=== PATIENT | female | born 1940 | race Caucasian/White ===

== ENCOUNTER → 2017-08-21 12:00 | Outpatient (CLI) | payer MEDICARE, OTHER, SELFPAY ==
[2017-08-21 15:34] LABS: Absolute Lymphocyte Count 1.64 X10^3/ul (0.83-4.51); Absolute Neutrophil Count 4.7 X10^3/uL (2.0-7.7); Basophil# 0.04 X10^3/uL; Basophil% 0.5 % (0-1); Eosinophil# 0.21 X10^3/uL; Eosinophils% 2.9 % (0-5); Hematocrit 43.3 % (37-47); Hemoglobin 14.3 g/dl (12.0-15.0); Lymphocyte # 1.64 X10^3/ul (4.0); Lymphocyte % 22.4 % (19-41); Mean Corpuscular Hgb 31.3 pg (27.0-32.0); Mean Corpuscular Volume 94.7 fL (81-99); Mean Platelet Vol. 11.6 fl (6.2-12.0); Monocyte# 0.69 X10^3/uL; Monocyte% 9.4 % (0-10); Neutrophil # 4.74 X10^3/uL (2.7-7.7); Neutrophil % 64.7 % (47-70); Platelet Count 227 K/mm3 (150-450); RBC Distribution Width CV 14.6 % (11.6-14.6); RBC Distribution Width SD 49.1 fl (35.1-43.9); Red Blood Count 4.57 M/mm3 (4.2-5.4); White Blood Count 7.3 K/mm3 (4.4-11.0)
[2017-08-21 15:37] LABS: POSITIVE COUNT NO; POSITIVE DIFFERENTIAL NO; POSITIVE MORPHOLOGY NO
[2017-08-21 15:55] LABS: Vitamin D,25 Hydroxy 64.6 ng/mL (29.95-100.01)
[2017-08-21 15:56] LABS: Hemoglobin A1c 6.2 % (4.2-6.3)
[2017-08-21 16:02] LABS: ALB/GLOB Ratio 0.8 RATIO (0.9-2.4); AST(SGOT) 20 U/L (15-37); Alanine Aminotransfer ALT/SGPT 24 U/L (13-56); Albumin, Serum 3.5 g/dL (3.2-5.0); Alkaline Phosphatase 63 U/L (45-117); Anion Gap 8 (5-15); BUN 30 mg/dL (7-18); BUN/Creat Ratio 21.6 RATIO (10-20); Calcium,Total 8.9 mg/dL (8.5-10.1); Chloride 104 mmol/L (98-107); Creatinine, Serum 1.39 mg/dL (0.55-1.02); EST Glomerular Filtration Rate 39 mL/min (>60); Est Glom Filt Rate - Afr Amer 47 mL/min (>60); Globulin 4.6 g/dL (2.2-4.2); Glucose 97 mg/dL (74-106); Potassium 3.8 mmol/L (3.5-5.1); Protein, Total 8.1 g/dL (6.4-8.2); Sodium Level 141 mmol/L (136-145)
== END ==
PROVIDERS: Family Provider Family Medicine; PCP Family Medicine; Visit Provider Family Medicine
DX: E11.9 Type 2 diabetes mellitus without complications (principal); I10 Essential (primary) hypertension; R53.83 Other fatigue
CPT/HCPCS: 36415; 80053; 82306; 83036; 85025

== ENCOUNTER → 2018-02-20 11:51 | Outpatient (CLI) | payer MEDICARE, OTHER, SELFPAY ==
[2018-02-20 13:34] LABS: Absolute Lymphocyte Count 1.71 X10^3/ul (0.83-4.51); Absolute Neutrophil Count 4.4 X10^3/uL (2.0-7.7); Basophil# 0.03 X10^3/uL; Basophil% 0.4 % (0-1); Eosinophil# 0.19 X10^3/uL; Eosinophils% 2.6 % (0-5); Hemoglobin 13.4 g/dl (12.0-15.0); Lymphocyte # 1.71 X10^3/ul (4.0); Lymphocyte % 23.7 % (19-41); Mean Corp Hgb Conc 32.7 g/gl (32-36); Mean Corpuscular Volume 94.9 fL (81-99); Mean Platelet Vol. 11.7 fl (6.2-12.0); Monocyte# 0.86 X10^3/uL; Monocyte% 11.9 % (0-10); Neutrophil # 4.41 X10^3/uL (2.7-7.7); Neutrophil % 61.3 % (47-70); Platelet Count 198 K/mm3 (150-450); RBC Distribution Width CV 13.5 % (11.6-14.6); RBC Distribution Width SD 45.7 fl (35.1-43.9); Red Blood Count 4.32 M/mm3 (4.2-5.4); White Blood Count 7.2 K/mm3 (4.4-11.0)
[2018-02-20 13:39] LABS: POSITIVE COUNT NO; POSITIVE DIFFERENTIAL NO; POSITIVE MORPHOLOGY NO
[2018-02-20 13:49] LABS: ALB/GLOB Ratio 0.7 RATIO (0.9-2.4); AST(SGOT) 17 U/L (15-37); Alanine Aminotransfer ALT/SGPT 19 U/L (13-56); Albumin, Serum 3.2 g/dL (3.2-5.0); Alkaline Phosphatase 61 U/L (45-117); Anion Gap 9 (5-15); BUN 23 mg/dL (7-18); BUN/Creat Ratio 18.5 RATIO (10-20); Calcium,Total 8.6 mg/dL (8.5-10.1); Chloride 105 mmol/L (98-107); Cholesterol 155 mg/dL (200); Creatinine, Serum 1.24 mg/dL (0.55-1.02); EST Glomerular Filtration Rate 45 mL/min (>60); Est Glom Filt Rate - Afr Amer 54 mL/min (>60); Globulin 4.5 g/dL (2.2-4.2); Glucose 88 mg/dL (74-106); High Density Lipoprotein 39 mg/dL; Potassium 3.5 mmol/L (3.5-5.1); Protein, Total 7.7 g/dL (6.4-8.2); Sodium Level 143 mmol/L (136-145); Triglycerides 128 mg/dL; Very Low Density Lipoprotein 26 mg/dL (5-40)
== END ==
PROVIDERS: Family Provider Family Medicine; PCP Family Medicine; Visit Provider Family Medicine
DX: E11.9 Type 2 diabetes mellitus without complications (principal); I10 Essential (primary) hypertension; R53.83 Other fatigue
CPT/HCPCS: 36415; 80053; 80061; 85025

== ENCOUNTER 2018-07-13 20:44 | Emergency (ER) | payer MEDICARE, OTHER, SELFPAY ==
[2018-07-13 20:44] VITALS: BP 115/61; PULSE 98; RESP 18; TEMP 36.6; O2SAT 96; BMI 42.0
[2018-07-13] MEDS: Albuterol 2.5 MG/3 ML VIAL.NEB. INHALATION (21:15)
[2018-07-13] MEDS: 0.9% Normal Saline 1,000 ML 1000 ML IV (21:25)
[2018-07-13 21:40] LABS: Absolute Lymphocyte Count 1.14 X10^3/ul (0.83-4.51); Absolute Neutrophil Count 2.8 X10^3/uL (2.0-7.7); Basophil# 0.03 X10^3/uL; Basophil% 0.6 % (0-1); Eosinophil# 0.04 X10^3/uL; Eosinophils% 0.9 % (0-5); Hematocrit 44.6 % (37-47); Hemoglobin 14.8 g/dl (12.0-15.0); Lymphocyte # 1.14 X10^3/ul (4.0); Lymphocyte % 24.5 % (19-41); Mean Corp Hgb Conc 33.2 g/gl (32-36); Mean Corpuscular Volume 93.3 fL (81-99); Mean Platelet Vol. 11.4 fl (6.2-12.0); Monocyte# 0.67 X10^3/uL; Monocyte% 14.4 % (0-10); Neutrophil # 2.77 X10^3/uL (2.7-7.7); Neutrophil % 59.6 % (47-70); POSITIVE COUNT NO; POSITIVE DIFFERENTIAL NO; POSITIVE MORPHOLOGY NO; Platelet Count 144 K/mm3 (150-450); RBC Distribution Width SD 46.1 fl (35.1-43.9); Red Blood Count 4.78 M/mm3 (4.2-5.4); White Blood Count 4.7 K/mm3 (4.4-11.0)
[2018-07-13 21:52] LABS: Anion Gap 8 (5-15); BUN 29 mg/dL (7-18); BUN/Creat Ratio 20.7 RATIO (10-20); Calcium,Total 8.7 mg/dL (8.5-10.1); Chloride 105 mmol/L (98-107); EST Glomerular Filtration Rate 39 mL/min (>60); Est Glom Filt Rate - Afr Amer 47 mL/min (>60); Estimated Creatinine Clearance 24.17 ml/min; Glucose 103 mg/dL (74-106); Potassium 3.3 mmol/L (3.5-5.1); Sodium Level 139 mmol/L (136-145)
--- NOTE | 2018-07-13 21:55 | RAD_ITS ---
STUDY: X-RAY CHEST REASON FOR EXAM: Female, 77 years old. Cough TECHNIQUE: Frontal and lateral views COMPARISON: May 15, 2017 FINDINGS: The lungs are clear and expanded. There is no demonstrated pleural abnormality. Normal size heart. Normal mediastinum and colton. Normal visualized pulmonary arteries. Calcified aortic arch and descending thoracic aorta. Degenerative changes of the thoracic spine. Normal visualized ribs, clavicles, and shoulders. Follow-up large hiatal hernia. RAD/Chest PA and Lateral IMPRESSION: Large hiatal hernia. Electronically Signed: Arslan Rivera DO at 23:05 EST Tel [phone], Service support ,
--- NOTE | 2018-07-13 23:05 | ED.DCSUM_ITS ---
- ER Visit Summary Date of Service: 07/13/18 Chief Complaint: Generalized weakness History of Present Illness: The patient is a 77 F presenting for evaluation secondary to generalized weakness. Patient reports that she is been dealing with an upper respiratory infection over the course last week. This been associated with a basically nonproductive cough that occasionally produces some green colored sputum. Patient denies that there is been any associated fever with this. Patient reports that over the course the last couple of days however she has had decreased p.o. intake, and is feeling generally weak. Patient reports that she feels extremely fatigued when she walks short distances but denies any chest pain. Patient has been taking nebulized albuterol at home with minimal improvement. Review of systems otherwise negative. Physical Examination: Vital signs within normal limits. Well-nourished female no acute distress. PRL, EOMI. Mucous membranes are mildly dry. Neck is supple. Heart regular rate and rhythm. Lung sounds showed evidence of wheezes throughout the lung ford that are mild with no respiratory retractions or prolonged expiratory phase. Remainder of physical otherwise unremarkable. Test Results: Chest x-ray by my personal interpretation shows no infiltrate. CBC unremarkable, chemistry shows mild hypokalemia 3.3 creatinine at patient's baseline 1.4. Flu swab is negative. Emergency Department Course and Treatment: Patient presented with generalized weakness in the setting of a respiratory illness. Workup as noted above was found to be unremarkable. Patient was given albuterol liter normal saline and had improvement. Patient has a history of borderline diabetes for which she does not take any medications for, so I do not believe that a prolonged prednisone burst is appropriate. Patient was given a single dose Decadron in the emergency department will be discharged follow-up with primary care. Disposition: Discharge Impression: 1. Bronchitis This note was generated with [employer] dictation software. It may contain incorrect words, spelling, and punctuation that were not noted in review of the chart prior to signing ED Disposition - Plan for ED Patient: Disposition: Home or Assisted Living Chief Complaint: Weakness Diagnosis: Bronchitis Instructions: ED Bronchitis Asthmatic Referrals: Elaina Butts DO [Primary Care Provider] - 3-5 Days
[2018-07-13 23:19] VITALS: BP 127/82; PULSE 101; PULSE 98; RESP 16; O2SAT 96; O2SAT 97
== END 2018-07-13 23:22 | disposition home or self-care (01) ==
PROVIDERS: Emergency Provider Emergency Medicine; Family Provider Family Medicine; PCP Family Medicine
DX: J40 Bronchitis, not specified as acute or chronic (principal); R73.09 Other abnormal glucose; R53.1 Weakness; E87.6 Hypokalemia; I10 Essential (primary) hypertension
CPT/HCPCS: 71046; 80048; 85025; 87804; 96360; 96361; 99284; J7030

== ENCOUNTER → 2018-08-30 08:01 | Outpatient (CLI) | payer MEDICARE, OTHER, SELFPAY ==
[2018-08-30 12:39] LABS: Hemoglobin A1c 6.1 % (4.2-6.3); Microalbumin,Random Urine 24.5 mg/L (NO RANGE EST.); Microalbumin:Creatinine Ratio 14.2 mg/g CRE (<30 mg/g CRE)
[2018-08-30 12:47] LABS: ALB/GLOB Ratio 0.9 RATIO (0.9-2.4); AST(SGOT) 21 U/L (15-37); Alanine Aminotransfer ALT/SGPT 23 U/L (13-56); Albumin, Serum 3.5 g/dL (3.2-5.0); Alkaline Phosphatase 73 U/L (45-117); Anion Gap 6 (5-15); BUN 22 mg/dL (7-18); BUN/Creat Ratio 16.2 RATIO (10-20); Calcium,Total 8.6 mg/dL (8.5-10.1); Chloride 104 mmol/L (98-107); Creatinine, Serum 1.36 mg/dL (0.55-1.02); EST Glomerular Filtration Rate 40 mL/min (>60); Est Glom Filt Rate - Afr Amer 48 mL/min (>60); Globulin 4.1 g/dL (2.2-4.2); Glucose 98 mg/dL (74-106); Potassium 3.6 mmol/L (3.5-5.1); Protein, Total 7.6 g/dL (6.4-8.2); Sodium Level 137 mmol/L (136-145)
== END ==
PROVIDERS: Family Provider Family Medicine; PCP Family Medicine; Visit Provider Family Medicine
DX: E11.9 Type 2 diabetes mellitus without complications (principal); I10 Essential (primary) hypertension
CPT/HCPCS: 36415; 80053; 82043; 82570; 83036

== ENCOUNTER → 2018-09-14 06:47 | Outpatient (CLI) | payer MEDICARE, OTHER, SELFPAY ==
--- NOTE | 2018-09-14 06:48 | CT_ITS ---
STUDY: CT ABDOMEN AND PELVIS WITH CONTRAST REASON FOR EXAM: Female, 78 years old. Hiatal hernia. Prior cholecystectomy. RADIATION DOSAGE (If Supplied By Facility): CTDIvol = ( 23.36 ) mGy, DLP = ( 2267.37 ) mGycm TECHNIQUE: Transaxial images were obtained from the dome of the diaphragm to the symphysis pubis with oral contrast. 100 IV/Oral Isovue 300 was administered. Sagittal and coronal images were reconstructed. Individualized dose optimization techniques were used for this CT. COMPARISON: None. FINDINGS: The visualized lung bases are unremarkable. The visualized portions of the heart are within normal limits. There is decreased attenuation of the liver consistent with steatosis. The patient is status post cholecystectomy. Normal spleen. There is diffuse atrophy of the pancreas. Normal bilateral adrenal glands. There is mild cortical atrophy of the right kidney, consistent with chronic medical renal disease. There is a 1.1 some uterus cyst in the upper pole of the right kidney. There is mild cortical atrophy of the left kidney, consistent with chronic medical renal disease. Moderate sized ankle hernia. Normal small intestine. There is evidence of a mucosal thickening is circumferential wall thickening of the rectosigmoid colon. Colitis should be ruled out. There are scattered colonic diverticula consistent with diverticulosis. The appendix is visualized and appears normal. There is diffuse atherosclerotic calcification of the abdominal aorta, without a demonstrated aneurysm. Normal inferior vena cava. Normal retroperitoneum. Normal urinary bladder. There is a small umbilical hernia containing fat. There are mild degenerative changes of the visualized lumbar spine. The patient is status post right total hip replacement. CT/Abdomen/Pelvis WITH Contrast IMPRESSION: Fatty infiltration of the liver. Bilateral renal atrophy. Moderate sized hiatal hernia. Mucosal thickening and wall thickening of the rectosigmoid colon. Colitis should be ruled out. Electronically Signed: Jason White, at 10:15 EDT , Service support ,
--- NOTE | 2018-09-14 06:48 | CT_ITS ---
STUDY: CT CHEST WITH CONTRAST REASON FOR EXAM: Female, 78 years old. Hiatal hernia. RADIATION DOSAGE (If Supplied By Facility): CTDIvol = ( 23.36 ) mGy, DLP = ( 2267.37 ) mGycm TECHNIQUE: Transaxial imaging was performed following intravenous administration of 100 IV Isovue 300. Multiplanar coronal and sagittal images were reformatted. Individualized dose optimization techniques were used for this CT. COMPARISON: None. FINDINGS: Homogeneous enlargement of both lobes of the thyroid gland with the hypodense nodules in the lower lobes bilaterally slightly worse on the left side. Small bilateral axillary lymph nodes. Hyperinflation. Mild degree of increased markings at the lung bases suggest some mild bibasilar scarring worse on the right side. There is no demonstrated pleural abnormality. There are calcifications of the coronary arteries. There are multiple small lymph nodes within the mediastinum, which are normal in size and morphology most compatible with reactive lymph hyperplasia. Normal hilar regions. Normal enhanced pulmonary arteries. Normal aorta arch and descending thoracic aorta. There are multi-level degenerative changes of the thoracic spine. Moderate sized hiatal hernia. Pancreatic atrophy. CT/Chest WITH Contrast IMPRESSION: Hyperinflation. Increased markings at the lung bases suggesting mild bibasilar scarring. Moderate sized hiatal hernia. Electronically Signed: Jason White, at 10:17 EDT , Service support ,
== END ==
PROVIDERS: Family Provider Family Medicine; PCP Family Medicine; Referring Provider Surgery; Visit Provider Surgery
DX: K44.9 Diaphragmatic hernia without obstruction or gangrene (principal)
CPT/HCPCS: 71260; 74177; Q9967

== ENCOUNTER 2018-09-25 08:08 | Day surgery (SDC) | payer MEDICARE, OTHER, SELFPAY ==
[2018-09-18 09:32] VITALS: BMI 42.0
[2018-09-25] VITALS (7 sets, daily range): BP systolic 86–130; BP diastolic 47–89; PULSE 55–68; RESP 16–18; TEMP 36.2–37.1; O2SAT 95–97; BMI 42.3
[2018-09-25 09:00] LABS: Bedside Glucose 112 mg/dL (70-110)
--- NOTE | 2018-09-25 09:48 | OP.ENDO_ITS ---
09/25/2018 Elaina Butts [address] [place] [address] Re : Colonoscopy procedure for Zelda Benjamin Dear Dr. Butts This procedure was performed on Tuesday, September 25, 2018. My impressions and recommendations are as follows: Impressions : - Diverticulosis in the entire examined colon. - The examination was otherwise normal on direct and retroflexion views. - No specimens collected. Recommendations : - Discharge patient to home. - Resume previous diet. - Continue present medications. - Repeat colonoscopy is not recommended due to current age (66 years or older) for screening purposes. My findings are described in the full procedure note, which is enclosed. If I can be of further assistance, please feel free to contact me at Doctor phone number(s): , Work: . Sincerely, Rock Gomez MD 09/25/2018 9:47:32 AM This report has been signed electronically.
== END 2018-09-25 10:23 | disposition home or self-care (01) ==
LOC: EN 08:08 → AC 08:09
PROVIDERS: Family Provider Family Medicine; PCP Family Medicine; Referring Provider Surgery; Visit Provider Surgery
PROC: 0DJD8ZZ Inspection of Lower Intestinal Tract, Via Natural or Artificial Opening Endoscopic (ICD-10-PCS; CPT 45378; principal; 2018-09-25 09:25)
DX: K57.30 Diverticulosis of large intestine without perforation or abscess without bleeding (principal); K63.9 Disease of intestine, unspecified; K44.9 Diaphragmatic hernia without obstruction or gangrene; E11.9 Type 2 diabetes mellitus without complications; I10 Essential (primary) hypertension; R32 Unspecified urinary incontinence; K21.9 Gastro-esophageal reflux disease without esophagitis; Z79.82 Long term (current) use of aspirin; Z79.899 Other long term (current) drug therapy; Z85.820 Personal history of malignant melanoma of skin; Z87.440 Personal history of urinary (tract) infections; Z96.641 Presence of right artificial hip joint
CPT/HCPCS: 45378; 82962; J7120

== ENCOUNTER → 2018-11-06 10:28 | Outpatient (CLI) | payer MEDICARE, OTHER, SELFPAY ==
[2018-09-25 08:37] VITALS: BMI 42.3
== END ==
PROVIDERS: Family Provider Family Medicine; PCP Family Medicine; Visit Provider Family Medicine
DX: E04.1 Nontoxic single thyroid nodule (principal)
CPT/HCPCS: 36415; 84443

== ENCOUNTER → 2018-11-30 07:05 | Outpatient (CLI) | payer MEDICARE, OTHER, SELFPAY ==
[2018-09-25 08:37] VITALS: BMI 42.3
[2018-11-25 08:52] VITALS: BMI 42.3
--- NOTE | 2018-11-30 07:07 | BI_ITS ---
MAMMOGRAPHY - BILATERAL SCREENING REASON FOR EXAM: Female, 78 years old. Routine annual screening examination. PERTINENT HISTORY: Sister with breast cancer. TECHNIQUE: Digital bilateral breast vivek (3D mammographic acquisition) in the CC and MLO projections. 2-D mediolateral oblique (MLO) and craniocaudad (CC) views of both breasts were obtained. CAD: Full Field Digital Mammography with Computer Added Detection was performed. COMPARISON: Comparison is made with prior study July 04, 2016 and June 16, 2015. FINDINGS: Breast Composition: There are scattered areas of fibroglandular density. There are no dominant masses or suspicious calcifications. There is a faint 6.4 mm x 9.3 mm well-defined nodular density in the deep inferior slightly medial aspect of the right breast. This was not seen on prior study. Correlation with ultrasound is recommended. No other significant abnormalities are identified. BI/SCREEN MAMM (CAD) W/VIVEK BILAT IMPRESSION: 6.4 mm x 9.3 mm well-defined nodular density in the deep inferior slightly medial aspect of the right breast. Correlation with ultrasound is recommended. ASSESSMENT CATEGORY: BIRADS Category 0: Incomplete. Need additional imaging evaluation. A letter regarding these results will be sent to the patient by the facility within 30 days. Approximately 10% of breast cancers are not detected by mammography. A normal mammogram should not delay biopsy of a clinically suspicious abnormality. [id number] Electronically Signed: Jason White, at 8:45 EDT , Service support ,
== END ==
PROVIDERS: Family Provider Family Medicine; PCP Family Medicine; Referring Provider Family Medicine; Visit Provider Family Medicine
DX: Z12.31 Encounter for screening mammogram for malignant neoplasm of breast (principal)
CPT/HCPCS: 77063; 77067

== ENCOUNTER → 2018-12-07 10:15 | Outpatient (CLI) | payer MEDICARE, OTHER, SELFPAY ==
[2018-11-25 08:52] VITALS: BMI 42.3
--- NOTE | 2018-12-07 10:18 | US_ITS ---
STUDY: ULTRASOUND BREAST - RIGHT REASON FOR EXAM: Female, 78 years old. TECHNIQUE: Axial and longitudinal images of the RIGHT breast were performed with a high resolution ultrasound transducer. COMPARISON: None. FINDINGS: RIGHT Breast: There is no evidence of any masses or cysts in the right base and no significantly enlarged lymph nodes in the right axilla. There is prominence of the fibroglandular tissue unusual in this age. US/Breast Limited Unilateral IMPRESSION: Negative ultrasound of the right breast Electronically Signed: Luke Ramirez, at 9:56 EDT Tel , Service support ,
== END ==
PROVIDERS: Family Provider Family Medicine; PCP Family Medicine; Referring Provider Family Medicine; Visit Provider Family Medicine
DX: R92.8 Other abnormal and inconclusive findings on diagnostic imaging of breast (principal)
CPT/HCPCS: 76642

== ENCOUNTER → 2019-01-02 20:00 | Outpatient (CLI) | payer MEDICARE, OTHER, SELFPAY ==
[2018-12-11 10:41] VITALS: BMI 42.3
== END ==
PROVIDERS: Family Provider Family Medicine; PCP Family Medicine; Referring Provider Internal Medicine Critical Care Medicine; Visit Provider Internal Medicine Critical Care Medicine
DX: G47.10 Hypersomnia, unspecified (principal)
CPT/HCPCS: 95810

== ENCOUNTER → 2019-01-10 09:40 | Outpatient (CLI) | payer MEDICARE, OTHER, SELFPAY ==
[2018-12-25 08:46] VITALS: BMI 42.3
--- NOTE | 2019-01-10 09:46 | RAD_ITS ---
STUDY: X-RAY - LEFT KNEE REASON FOR EXAM: Pain. TECHNIQUE: 4 view(s) of the knee. COMPARISON: None. FINDINGS: Normal visualized distal femur. Normal visualized proximal tibia and fibula. Normal proximal tibiofibular articulation. Normal medial femorotibial compartment. Normal lateral femorotibial compartment. Normal patellofemoral articulation. The soft tissue structures are unremarkable. RAD/Knee 4 or More Views IMPRESSION: Normal x-ray examination of the left knee. Electronically Signed: Carroll Mckenzie MD at 10:06 EDT Tel , Service support ,
== END ==
PROVIDERS: Family Provider Family Medicine; PCP Family Medicine; Referring Provider Orthopaedic Surgery; Visit Provider Orthopaedic Surgery
DX: M25.562 Pain in left knee (principal)
CPT/HCPCS: 73564

== ENCOUNTER 2019-01-25 09:00 | Outpatient (RCR) | payer MEDICARE, OTHER, SELFPAY ==
[2018-12-21 13:27] VITALS: BMI 42.3
[2018-12-25 08:46] VITALS: BMI 42.3
--- NOTE | 2019-01-04 10:27 | HP.PTEVAL_ITS ---
Patient's Visit Information JUDITH HUNT is a 78 year old F referred to Physical Therapy by HANNAH Loya with a diagnosis of STRAIN OF UNSPECIFIED MUSCLE AND TENDON AT LOWER LEG. Date of Evaluation: 01/04/19 Physical Therapist: Mikey Foreman, PT, Cert MDT, OCS - Visit Plan Frequency: 2x /Week Duration: 4 Weeks Plan: PT INTERVETIONS WITH ROM ,PRES'S QUADS/HAMS/HIP,NUSTEP MODALTIES FOR PAIN RELEIVE - Subjective Findings: This 78 y/o female presents to physical therapy with c/o left knee pain .Patient has pain left knee for about 2weeks . Patient reports to specific injury or trauma. Patient symptoms worse with walking extended distances ,standing affects ADL's and housework tasks. Patient does stairs one step at a time. Patient able to sleep .Patient is unable to squat and kneel. Patient does water exercises whic helpd pain. Patient does water exercises 2x /wk.Patient pain affects QOL and ADL's .Patient pain affects ability to perform housework tasks and ADL'S. SOCIAL: . VOCATION: retired - Pain Left Knee Pain Intensity (Out of 10): 2 Pain Intensity Range: 10 - Objective POSTURE: mild foward posture. GAIT: mild foward posture mild antalgic gait left. PALAPTION:lateral joint line. NEURO: intact. AROM:L- 0-120 degrees supine knee flexion ,R-0-135 degrees supine knee flexion. MMT:quads/hams 4-/5 ,hip flexion 4-/5,abd 4-/5 ankle 4/5. FLEXABILITY: min hams - Special Tests L Knee Nicki - Meniscus: Negative L Knee Valgus - MCL: Negative L Knee Varus - LCL: Negative L Knee Patellar Apprehension - PFS: Negative Comments: + hyperflexion knee - Goals Goal 1:: Patient to be Independant with HEP. Goal Time Frame: 2-4 Weeks Goal 2:: Patient to normalize gait pattern community distances. Goal Time Frame: 2-4 Weeks Goal 3:: Patient to increase ROM left knee with flexion by 5-[address] to improve function. Goal Time Frame: 2-4 Weeks Goal 4:: Patient to imptove strength quads/hams 4/5 to improve function with gait . Goal Time Frame: 2-4 Weeks Goal 5:: Patient to improve LFES score by 5 points or greater to improve QOL. Goal Time Frame: 2-4 Weeks - Rehabilitation Potential Physical Therapy Diagnosis: This patient has left lateral knee pain with pain with palaption,weakness ,decrease ROM impairs gait and ADL'S thus benifit from skilled PT. Rehabilitation Potential: Good - Anticipated Interventions Patient/Client Instruction: Educate patient on: Condition, Plan of Care For the Purpose of:: To decrease pain, To increase ROM, To improve muscle performance and motor function, To improve ability to perform ADL's, To increase tolerance to activity/condition/position, To improve ability of physical actions for home/community/work/leisure, To improve health of tissue, To decrease soft tissue restriction, To increase flexibility/ROM, To improve ability to perform tasks related to life management Therapeutic Exercise to Include: Strength training, Balance training, Active ROM Comment: QUADS/HAMS/HIP For the Purpose of:: To decrease pain, To increase ROM, To increase tolerance to activity/condition/position, To improve performance and independence with ADL's, To improve ability of physical actions for home/community/work/leisure, To decrease soft tissue restriction, To increase flexibility/ROM, To improve ability to perform tasks related to life management TENS: Yes IF ES: Yes Cryotherapy (ice pack, ice massage): Yes Thermo therapy (hot pack): Yes Ultrasound (thermal/non thermal): Yes For the Purpose of:: To decrease pain, To increase ROM, To improve nutrient delivery to tissue, To increase oxygenation perfusion, To improve health of tissue, To decrease soft tissue restriction Thank you for the opportunity to evaluate your patient. For Medicare and Medicare HMO plans, please review the plan of care and approve it. It will need to be FAXED BACK to us at [phone] for Medicare purposes. For Medicare only, by signing this I certify the plan of care. Please let me know if there are questions or concerns regarding this plan of care. Physician Signature: Date:
--- NOTE | 2019-01-25 09:25 | HP.PTDCSUM ---
HP - PT D/C Summary It has been my pleasure to treat JUDITH HUNT under orders from HANNAH Loya, for the diagnosis of STRAIN OF UNSPECIFIED MUSCLE AND TENDON AT LOWER LEG for a total of 7 visit(s). Discharge Date: 01/25/19 Please see the following information for a summary of their discharge status. - Subjective Subjective: Pateint doing alot better no pain..Patient doing activity and function around house. - Pain Left Knee Pain Intensity (Out of 10): 0 - Overall Improvement % Improvement: 90 - Objective Objective/Function: POSTURE: mild foward posture. GAIT: mild foward posture reciprocal pattern. MMT: quads/hams 4/5,4/5 hip ankle. AROM:0-140 DEGREES - Goals Goal 1:: Patient to be Independant with HEP. Goal Progress: Goal Met Goal 2:: Patient to normalize gait pattern community distances. Goal Progress: Goal Met Goal 3:: Patient to increase ROM left knee with flexion by 5-10 degrees or greater to improve function. Goal Progress: Goal Met Goal 4:: Patient to imptove strength quads/hams 4/5 to improve function with gait . Goal Progress: Goal Met Goal 5:: Patient to improve LFES score by 5 points or greater to improve QOL. Goal Progress: Goal Met - Plan Plan: D/C - D/C Information Discharge Comments: HEP If there are questions or concerns regarding this patient's physical therapy, please feel free to call me at [phone]. Thank you for the referral of this patient. Sincerely, Mikey Foreman, PT, Cert MDT, OCS
== END 2019-01-25 19:00 | disposition home or self-care (01) ==
LOC: PT 09:00
PROVIDERS: Family Provider Family Medicine; PCP Family Medicine; Referring Provider Physician Assistant Surgical; Visit Provider Physician Assistant Surgical
DX: S86.912D Strain of unspecified muscle(s) and tendon(s) at lower leg level, left leg, subsequent encounter (principal)
CPT/HCPCS: 97110; 97162

== ENCOUNTER → 2019-02-01 19:57 | Outpatient (CLI) | payer MEDICARE, OTHER, SELFPAY ==
[2018-12-25 08:46] VITALS: BMI 42.3
== END ==
PROVIDERS: Family Provider Family Medicine; PCP Family Medicine; Referring Provider Nurse Practitioner Acute Care; Visit Provider Nurse Practitioner Acute Care
DX: G47.33 Obstructive sleep apnea (adult) (pediatric) (principal)
CPT/HCPCS: 95811

== ENCOUNTER → 2019-02-25 09:56 | Outpatient (CLI) | payer MEDICARE, OTHER, SELFPAY ==
[2019-01-10 10:41] VITALS: BMI 42.3
--- NOTE | 2019-02-26 08:27 | PFT ---
INTRODUCTION: The patient is a 78-year-old female that presents for pulmonary function studies secondary to a diagnosis of shortness of breath. Respiratory therapy reports good patient effort. Bronchodilators were used during testing. INTERPRETATION: Forced expiration spirometry demonstrates no evidence of a large airways obstructive ventilatory defect. There was no significant response to aerosolized bronchodilators, based upon strict ATS criteria. Spirograms are of good quality and plateau normally. Body plethysmography was performed and reveals lung volumes to be within normal limits. Diffusing capacity by single breath CO is at the lower limits of normal. IMPRESSION: Normal spirometry and lung volumes. No bronchodilator response. Diffusing capacity is at the lower limits of normal.
== END ==
PROVIDERS: Family Provider Family Medicine; PCP Family Medicine; Referring Provider Nurse Practitioner Acute Care; Visit Provider Nurse Practitioner Acute Care
DX: R06.09 Other forms of dyspnea (principal)
CPT/HCPCS: 94060; 94726; 94729

== ENCOUNTER → 2019-03-01 07:01 | Outpatient (CLI) | payer MEDICARE, OTHER, SELFPAY ==
[2019-01-10 10:41] VITALS: BMI 42.3
[2019-03-01 10:28] LABS: Absolute Lymphocyte Count 1.46 X10^3/uL (0.83-4.51); Absolute Neutrophil Count 4.1 X10^3/uL (2.0-7.7); Basophil# 0.03 X10^3/uL; Basophil% 0.5 % (0-1); Eosinophil# 0.18 X10^3/uL; Eosinophils% 2.9 % (0-5); Hematocrit 40.4 % (37-47); Hemoglobin 12.9 g/dL (12.0-15.0); Lymphocyte # 1.46 X10^3/ul (4.0); Lymphocyte % 23.2 % (19-41); Mean Corp Hgb Conc 31.9 g/dL (32-36); Mean Corpuscular Hgb 31.1 pg (27.0-32.0); Mean Corpuscular Volume 97.3 fL (81-99); Mean Platelet Vol. 11.6 fl (6.2-12.0); Monocyte# 0.52 X10^3/uL; Monocyte% 8.3 % (0-10); NRBC Flagged by Analyzer 0 % (0-5); Neutrophil # 4.09 X10^3/uL (2.7-7.7); Neutrophil % 64.8 % (47-70); Platelet Count 173 K/mm3 (150-450); RBC Distribution Width CV 13.8 % (11.6-14.6); RBC Distribution Width SD 48.9 fl (35.1-43.9); Red Blood Count 4.15 M/mm3 (4.2-5.4); White Blood Count 6.3 K/mm3 (4.4-11.0)
[2019-03-01 10:39] LABS: Microalbumin,Random Urine 24.8 mg/L (NO RANGE EST.); Microalbumin:Creatinine Ratio 10.8 mg/g CRE (<30 mg/g CRE)
[2019-03-01 10:56] LABS: Hemoglobin A1c 6.1 % (4.2-6.3)
[2019-03-01 11:16] LABS: ALB/GLOB Ratio 0.7 RATIO (0.9-2.4); AST(SGOT) 13 U/L (15-37); Alanine Aminotransfer ALT/SGPT 19 U/L (13-56); Albumin, Serum 3.2 g/dL (3.2-5.0); Alkaline Phosphatase 72 U/L (45-117); Anion Gap 3 (5-15); BUN 26 mg/dL (7-18); BUN/Creat Ratio 22.4 RATIO (10-20); Calcium,Total 8.7 mg/dL (8.5-10.1); Chloride 109 mmol/L (98-107); Cholesterol 139 mg/dL (200); Creatinine, Serum 1.16 mg/dL (0.55-1.02); EST Glomerular Filtration Rate 48 mL/min (>60); Est Glom Filt Rate - Afr Amer 58 mL/min (>60); Globulin 4.5 g/dL (2.2-4.2); Glucose 98 mg/dL (74-106); High Density Lipoprotein 38 mg/dL; Potassium 3.4 mmol/L (3.5-5.1); Protein, Total 7.7 g/dL (6.4-8.2); Sodium Level 140 mmol/L (136-145); Triglycerides 136 mg/dL; Very Low Density Lipoprotein 27 mg/dL (5-40)
== END ==
PROVIDERS: Family Provider Family Medicine; PCP Family Medicine; Referring Provider Family Medicine; Visit Provider Family Medicine
DX: E11.9 Type 2 diabetes mellitus without complications (principal); I10 Essential (primary) hypertension; Z51.81 Encounter for therapeutic drug level monitoring
CPT/HCPCS: 36415; 80053; 80061; 82043; 82570; 83036; 85025

== ENCOUNTER → 2019-08-20 08:36 | Outpatient (CLI) | payer MEDICARE, OTHER, SELFPAY ==
[2019-03-12 06:19] VITALS: BMI 42.3
[2019-04-29 08:05] VITALS: BMI 43.0
--- NOTE | 2019-08-20 15:21 | PFTCOMP ---
COMPLETE PULMONARY FUNCTION TEST INTERPRETATION Brief HPI: Patient is a 79 year old female, currently under the care of myself, who presents to [facility] for complete pulmonary function tests secondary to diagnosis of JOSE C. Respiratory therapist reports good effort and reproducible results. Interpretation: Forced expiration spirometry shows no large airways obstructive ventilatory defect with an FEV1 of 117% predicted. There is no significant bronchodilator response by strict ATS criteria. Spirograms are of good quality and plateau normally. The respiratory flow volume loop shows a normal pattern. Lung volumes by body plethysmography show a normal total lung capacity at 3.48 L, 88% predicted. All other lung volumes are within normal limits. Diffusion capacity by carbon monoxide is at the lower limit of normal at 67% predicted. The airway resistance is normal. Compared to previous pulmonary function tests from 02/25/2019, been a significant improvement in FVC and FEV1 by 13%. Impression: Grossly normal pulmonary function test with lung volumes and DLCO at the lower limit of normal, but some improvement compared to previous.
== END ==
PROVIDERS: Family Provider Family Medicine; PCP Family Medicine; Referring Provider Internal Medicine Critical Care Medicine; Visit Provider Internal Medicine Critical Care Medicine
DX: G47.33 Obstructive sleep apnea (adult) (pediatric) (principal); R94.2 Abnormal results of pulmonary function studies
CPT/HCPCS: 94060; 94726; 94729

== ENCOUNTER 2019-12-07 19:19 | Emergency (ER) | payer MEDICARE, OTHER, SELFPAY ==
[2019-08-27 09:49] VITALS: BMI 41.4
[2019-12-07 19:20] VITALS: BP 162/102; PULSE 63; RESP 16; TEMP 36.6; O2SAT 98; BMI 42.4
--- NOTE | 2019-12-07 19:40 | RAD_ITS ---
STUDY: X-RAY - STERNOCLAVICULAR JOINTS REASON FOR EXAM: Female, 79 years old. TRIPPED, FELL THIS AM, INJURED LEFT SHOULDER. LEFT SC AREA PAIN. TECHNIQUE: 4 view(s) of the bilateral sternoclavicular joints were obtained. COMPARISON: Chest radiograph dated July 13, [address] of the chest dated September 14, 2018 FINDINGS: Normal bilateral sternoclavicular articulations. There is a questionable lucency within the medial left clavicle. Normal manubrium. Normal visualized ribs. There is a stable radiolucency projecting over the visualized cardiac silhouette system with a hiatal hernia. RAD/S-C Jts Min 3 Views IMPRESSION: Indeterminate lucency within the medial left clavicle, cannot exclude a nondisplaced fracture. Electronically Signed: Jessica Garcia MD at 20:07 EDT Tel , Service support ,
--- NOTE | 2019-12-07 20:12 | ED.VISSUMM ---
- ER Visit Summary Date of Service: 12/07/19 Chief Complaint: [Injury to left clavicle] History of Present Illness: The patient is a 79 F [presents to the emergency department after sustaining a fall earlier this morning. Patient states that she tripped over something while sweeping the garage and landed on her buttocks but she put her left arm behind her to brace herself. She also thinks she may have hit a door frame with her clavicle area. Patient is right-hand dominant. She denies striking her head. She denies loss of consciousness. She denies neck pain.] Physical Examination: [HEENT-PERRLA, EOMI. Cranial nerves II through XII grossly intact. TMs clear. Mucous membranes moist. No adenopathy. Cardiovascular-regular rate and rhythm without murmur or ectopy Lungs-clear to auscultation, chest wall stable without crepitus or subcu emphysema Abdomen-normoactive bowel sounds, soft, nontender, no rebound or rigidity, no peritoneal signs. Extremities-intact ?4, normal range of motion, normal pulses. Left arm-patient does have some mild soft tissue swelling over the medial aspect of the clavicle with tenderness to palpation. No ecchymosis or bruising noted. No obvious deformity. She is neurovascular intact distally.] Test Results: [X-rays of the clavicle obtained showed no evidence of sternoclavicular disruption. She did have a lucency through the medial portion of the clavicle and could not rule out a nondisplaced fracture of the medial clavicle.] Emergency Department Course and Treatment: [We will be given a sling.] Treatment Plan: [She will be given referral to Ortho in a sling. Patient will be given a prescription for [place] for pain.] Disposition: [Discharged home in stable condition] Impression: [Left clavicle fracture] This note was generated with [employer] dictation software. It may contain incorrect words, spelling, and punctuation that were not noted in review of the chart prior to signing ED Disposition - Plan for ED Patient: Referrals: Elaina Butts DO [Primary Care Provider] -
--- NOTE | 2019-12-07 20:15 | ED.DEP ---
ED Disposition - Plan for ED Patient: Instructions: ED Clavicle Fracture Prescriptions: Hydrocodone Bitart/Apap 5-325 [[place] 5MG-325MG] 1 tab PO Q4H PRN PRN 2 Days #14 tab PRN Reason: Pain Prescription Printed Referrals: Elaina Butts DO [Primary Care Provider] - Evelyn Pablo DO [STAFF PHYSICIAN] - 3-5 Days
[2019-12-07 20:29] VITALS: BP 154/60; PULSE 62; RESP 16; O2SAT 98
== END 2019-12-07 20:30 | disposition home or self-care (01) ==
LOC: ED 19:56
PROVIDERS: Emergency Provider Emergency Medicine; PCP Family Medicine
DX: S42.002A Fracture of unspecified part of left clavicle, initial encounter for closed fracture (principal); W01.0XXA Fall on same level from slipping, tripping and stumbling without subsequent striking against object, initial encounter; Y93.E5 Activity, floor mopping and cleaning; Y92.008 Other place in unspecified non-institutional (private) residence as the place of occurrence of the external cause; Y99.9 Unspecified external cause status; G47.33 Obstructive sleep apnea (adult) (pediatric); Z79.82 Long term (current) use of aspirin; Z79.899 Other long term (current) drug therapy
CPT/HCPCS: 71130; 99283

== ENCOUNTER → 2019-12-17 15:27 | Outpatient (CLI) | payer MEDICARE, OTHER, SELFPAY ==
[2019-12-17 15:14] VITALS: BMI 42.4
--- NOTE | 2019-12-17 15:27 | RAD_ITS ---
STUDY: X-RAY - STERNOCLAVICULAR JOINTS REASON FOR EXAM: Female, 79 years old. Clavicle fx f/u TECHNIQUE: 3 view(s) of the bilateral sternoclavicular joints were obtained. COMPARISON: 12/07/2019. FINDINGS: Normal bilateral sternoclavicular articulations. Normal visualized bilateral clavicles. Normal manubrium. Normal visualized ribs. There is no demonstrated fracture. RAD/S-C Jts Min 3 Views IMPRESSION: Normal x-ray of the bilateral sternoclavicular articulations. No clavicular fractures are seen. Electronically Signed: Cirilo Bryant MD at 23:53 EDT , Service support ,
== END ==
PROVIDERS: PCP Family Medicine; Referring Provider Orthopaedic Surgery; Visit Provider Orthopaedic Surgery
DX: M89.8X1 Other specified disorders of bone, shoulder (principal)
CPT/HCPCS: 71130

== ENCOUNTER → 2020-01-20 09:16 | Outpatient (CLI) | payer MEDICARE, OTHER, SELFPAY ==
[2019-12-17 15:14] VITALS: BMI 42.4
--- NOTE | 2020-01-20 09:17 | RAD_ITS ---
STUDY: X-RAY - LEFT CLAVICLE REASON FOR EXAM: Female, 79 years old. CLAVICLE FX TECHNIQUE: 2 view(s) of the clavicle. COMPARISON: 12/07/2019 sternoclavicular joint x-ray FINDINGS: Line for summation of shadows there is a suggestion of mild irregularity of the medial clavicle. This is seen on one view. Normal acromioclavicular articulation. Normal visualized sternoclavicular articulation. Normal visualized pulmonary apex. RAD/Clavicle IMPRESSION: Cannot exclude nondisplaced fracture medial left clavicle allowing for summation of shadows. Electronically Signed: Carolina Roa MD at 4:56 EDT Tel , Service support ,
== END ==
PROVIDERS: PCP Family Medicine; Referring Provider Physician Assistant; Visit Provider Physician Assistant
DX: S42.002A Fracture of unspecified part of left clavicle, initial encounter for closed fracture (principal); X58.XXXA Exposure to other specified factors, initial encounter; Y93.9 Activity, unspecified; Y92.9 Unspecified place or not applicable; Y99.9 Unspecified external cause status
CPT/HCPCS: 73000

== ENCOUNTER 2020-01-22 09:30 | Outpatient (RCR) | payer MEDICARE, OTHER, SELFPAY ==
[2019-12-17 15:14] VITALS: BMI 42.4
--- NOTE | 2019-12-23 10:53 | HP.PTEVAL_ITS ---
Patient's Visit Information JUDITH HUNT is a 79 year old F referred to Physical Therapy by Dr. Evelyn Pablo DO with a diagnosis of L clavicle fracture (fractured December 06). Date of Evaluation: 12/23/19 Physical Therapist: RENEE Street - Visit Plan Frequency: 2x /Week Duration: 4 Weeks Plan: 2X/ week for 4 weeks for L shoulder PROM/AROM, postural exercises, shoulder and scapular strengthening with HEP and ice/heat as needed - Subjective She tried to grab a chair with wheels and the chair took her down. She fell 2 weeks ago last Monday. She went to the ER and they did an x-ray and gave her a sling. She does not like to wear the sling. She saw Dr Greenfield in office and she said do therapy, self healing, and wear sling if want, and do ice pack. She feels that her L shoulder is getting better. It is so hard to see the fracture on x-rays. She can not sleep on her L shoulder. She has trouble reaching for things. She is R handed. She has trouble reaching, She has pain with supine to sit, or getting marcus around crossing RR tracks, sometime beding fw and coming back up. - Pain L shoulder pain Pain Intensity (Out of 10): 1 - Objective R handed. R 50# and L 40#. R flexion 80 degrees, abd 90 degrees, IR T12 and 75 ER. L flexion and abd 100 degree and IR T8 and 60 ER. MMT was not tested..... PROM was painful more so with abduction.... - Goals Goal 1:: I HEP Goal Time Frame: 4-6 Weeks Goal 2:: Increase L shoulder AROM to 120 degrees elevation Goal Time Frame: 4-6 Weeks Goal 3:: Increase L shoulder strength to 4/5 shoulder flex, abd, ER and IR Goal Time Frame: 4-6 Weeks Goal 4:: Sit with upright posture during treatment sessions Goal Time Frame: 4-6 Weeks - Rehabilitation Potential Rehabilitation Potential: Good - Anticipated Interventions Patient/Client Instruction: Educate patient on: Condition, Plan of Care For the Purpose of:: To decrease pain, To increase ROM, To improve nutrient delivery to tissue, To increase oxygenation perfusion, To improve muscle performance and motor function, To improve ability to perform ADL's, To increase tolerance to activity/condition/position, To improve performance and independence with ADL's, To decrease level of supervision to perform tasks, To improve ability of physical actions for home/community/work/leisure, To improve health of tissue, To decrease soft tissue restriction, To increase flexibility/ROM Therapeutic Exercise to Include: Strength training, Postural training, Flexibilty training, Passive ROM, Active ROM, Scapular Strength/Stabilization For the Purpose of:: To decrease pain, To decrease swelling/inflammation, To increase ROM, To improve nutrient delivery to tissue, To improve muscle performance and motor function, To improve ability to perform ADL's, To increase tolerance to activity/condition/position, To improve performance and independence with ADL's, To decrease level of supervision to perform tasks, To improve health of tissue, To decrease soft tissue restriction, To increase flexibility/ROM Manual Therapy Techniques to Include: Passive ROM, Soft tissue mobilization For the Purpose of:: To decrease pain, To decrease swelling/inflammation, To increase ROM, To improve nutrient delivery to tissue, To improve muscle performance and motor function, To improve ability to perform ADL's IF ES: Yes Cryotherapy (ice pack, ice massage): Yes Thermo therapy (hot pack): Yes For the Purpose of:: To decrease pain, To decrease swelling/inflammation, To increase ROM, To improve nutrient delivery to tissue, To improve muscle performance and motor function, To improve ability to perform ADL's Thank you for the opportunity to evaluate your patient. For Medicare and Medicare HMO plans, please review the plan of care and approve it. It will need to be FAXED BACK to us at [phone] for Medicare purposes. For Medicare only, by signing this I certify the plan of care. Please let me know if there are questions or concerns regarding this plan of care. Physician Signature: Date:
--- NOTE | 2020-04-08 13:07 | HP.PTDCNRP_ITS ---
JUDITH HUNT was seen in my office for initial evaluation on 12/23/19. The following Plan of Care was established for this patient: Initial Frequency: 2x /Week Initial Duration: 4 Weeks Patient/Client Instruction: Educate patient on: Condition, Plan of Care For the Purpose of:: To decrease pain, To increase ROM, To improve nutrient delivery to tissue, To increase oxygenation perfusion, To improve muscle performance and motor function, To improve ability to perform ADL's, To increase tolerance to activity/condition/position, To improve performance and independence with ADL's, To decrease level of supervision to perform tasks, To improve ability of physical actions for home/community/work/leisure, To improve health of tissue, To decrease soft tissue restriction, To increase flexibility/ROM Therapeutic Exercise to Include: Strength training, Postural training, Flexibilty training, Passive ROM, Active ROM, Scapular Strength/Stabilization For the Purpose of:: To decrease pain, To decrease swelling/inflammation, To in crease ROM, To improve nutrient delivery to tissue, To improve muscle performance and motor function, To improve ability to perform ADL's, To increase tolerance to activity/condition/position, To improve performance and independence with ADL's, To decrease level of supervision to perform tasks, To improve health of tissue, To decrease soft tissue restriction, To increase flexibility/ROM Manual Therapy Techniques to Include: Passive ROM, Soft tissue mobilization For the Purpose of:: To decrease pain, To decrease swelling/inflammation, To increase ROM, To improve nutrient delivery to tissue, To improve muscle performance and motor function, To improve ability to perform ADL's IF ES: Yes Cryotherapy (ice pack, ice massage): Yes Thermo therapy (hot pack): Yes For the Purpose of:: To decrease pain, To decrease swelling/inflammation, To increase ROM, To improve nutrient delivery to tissue, To improve muscle performance and motor function, To improve ability to perform ADL's This patient was last seen in our office 01/22/20. Pertinent comments regarding their Physical therapy will appear below: [facility] At this point I will be discontinuing this patient from physical therapy. I would be happy to see this patient again in the future if found appropriate by the physician. Thank you! Aury Napier, MPT
== END 2020-01-22 19:00 | disposition home or self-care (01) ==
LOC: PT 09:30
PROVIDERS: PCP Family Medicine; Visit Provider Orthopaedic Surgery
DX: S42.002D Fracture of unspecified part of left clavicle, subsequent encounter for fracture with routine healing (principal)
CPT/HCPCS: 97110; 97161; 97530

== ENCOUNTER → 2020-02-21 07:09 | Outpatient (CLI) | payer MEDICARE, OTHER, SELFPAY ==
[2020-02-14 10:32] VITALS: BMI 41.4
[2020-02-21 10:13] LABS: Absolute Lymphocyte Count 1.47 X10^3/uL (0.83-4.51); Absolute Neutrophil Count 4.7 X10^3/uL (2.0-7.7); Basophil# 0.05 X10^3/uL; Basophil% 0.7 % (0-1); Eosinophils% 2.8 % (0-5); Hematocrit 41.1 % (37-47); Lymphocyte # 1.47 X10^3/ul (4.0); Lymphocyte % 20.7 % (19-41); Mean Corp Hgb Conc 31.6 g/dL (32-36); Mean Corpuscular Hgb 30.5 pg (27.0-32.0); Mean Corpuscular Volume 96.5 fL (81-99); Mean Platelet Vol. 11.2 fl (6.2-12.0); Monocyte# 0.66 X10^3/uL; Monocyte% 9.3 % (0-10); NRBC Flagged by Analyzer 0 % (0-5); Neutrophil # 4.69 X10^3/uL (2.7-7.7); Neutrophil % 66.2 % (47-70); Platelet Count 231 K/mm3 (150-450); RBC Distribution Width CV 14.5 % (11.6-14.6); RBC Distribution Width SD 51.2 fl (35.1-43.9); Red Blood Count 4.26 M/mm3 (4.2-5.4); White Blood Count 7.1 K/mm3 (4.4-11.0)
[2020-02-21 10:52] LABS: Hemoglobin A1c 6.3 % (3.8-5.6)
[2020-02-21 11:06] LABS: ALB/GLOB Ratio 0.7 RATIO (0.9-2.4); AST(SGOT) 21 U/L (15-37); Alanine Aminotransfer ALT/SGPT 21 U/L (13-56); Albumin, Serum 3.2 g/dL (3.2-5.0); Alkaline Phosphatase 76 U/L (45-117); Anion Gap 6 (5-15); BUN 27 mg/dL (7-18); BUN/Creat Ratio 20.8 RATIO (10-20); Calcium,Total 8.4 mg/dL (8.5-10.1); Chloride 106 mmol/L (98-107); Cholesterol 157 mg/dL (200); EST Glomerular Filtration Rate 42 mL/min (>60); Est Glom Filt Rate - Afr Amer 51 mL/min (>60); Globulin 4.6 g/dL (2.2-4.2); Glucose 109 mg/dL (74-106); High Density Lipoprotein 38 mg/dL; Potassium 3.7 mmol/L (3.5-5.1); Protein, Total 7.8 g/dL (6.4-8.2); Sodium Level 140 mmol/L (136-145); Thyroid Stim Hormone (TSH) 1.77 uIU/mL (0.358-3.74); Triglycerides 104 mg/dL; Very Low Density Lipoprotein 21 mg/dL (5-40)
[2020-02-21 11:09] LABS: Microalbumin:Creatinine Ratio 22.4 mg/g CRE (<30 mg/g CRE)
== END ==
PROVIDERS: PCP Family Medicine; Referring Provider Family Medicine; Visit Provider Family Medicine
DX: E78.5 Hyperlipidemia, unspecified (principal); E11.9 Type 2 diabetes mellitus without complications; R53.83 Other fatigue
CPT/HCPCS: 36415; 80053; 80061; 82043; 82570; 83036; 84443; 85025

== ENCOUNTER → 2020-02-21 09:32 | Outpatient (CLI) | payer MEDICARE, OTHER, SELFPAY ==
[2020-01-20 12:30] VITALS: BMI 42.4
[2020-02-14 10:32] VITALS: BMI 41.4
--- NOTE | 2020-02-21 09:33 | BI_ITS ---
MAMMOGRAPHY - BILATERAL SCREENING REASON FOR EXAM: Female, 79 years old. Routine annual screening examination. PERTINENT HISTORY: Sister with breast cancer. TECHNIQUE: Digital bilateral breast vivek (3D mammographic acquisition) in the CC and MLO projections. 2-D mediolateral oblique (MLO) and craniocaudad (CC) views of both breasts were obtained. CAD: Full Field Digital Mammography with Computer Added Detection was performed. COMPARISON: Comparison is made with prior examination dated 11/30/2018. FINDINGS: Breast Composition: There are scattered areas of fibroglandular density. There are no dominant masses or suspicious calcifications. Stable benign appearing bilateral axillary lymph nodes. No other significant abnormalities are identified. There has been no significant change since the prior study. BI/SCREEN MAMM (CAD) W/VIVEK BILAT IMPRESSION: Stable bilateral screening mammogram. Yearly follow-up mammogram recommended. (A) ASSESSMENT CATEGORY: BIRADS Category 2: Benign. A letter regarding these results will be sent to the patient by the facility within 30 days. Approximately 10% of breast cancers are not detected by mammography. A normal mammogram should not delay biopsy of a clinically suspicious abnormality. [id number] Electronically Signed: Jason White, at 10:45 EDT , Service support ,
== END ==
PROVIDERS: PCP Family Medicine; Referring Provider Family Medicine; Visit Provider Family Medicine
DX: Z12.31 Encounter for screening mammogram for malignant neoplasm of breast (principal); E11.9 Type 2 diabetes mellitus without complications; E78.5 Hyperlipidemia, unspecified
CPT/HCPCS: 36415; 77063; 77067; 80053; 80061; 82043; 82570; 83036; 84443; 85025

== ENCOUNTER → 2020-08-27 13:31 | Outpatient (CLI) | payer MEDICARE, OTHER, SELFPAY ==
[2020-08-14 10:35] VITALS: BMI 40.7
[2020-08-27 15:10] LABS: Absolute Neutrophil Count 6.2 X10^3/uL (2.0-7.7); Basophil# 0.05 X10^3/uL; Basophil% 0.6 % (0-1); Eosinophil# 0.22 X10^3/uL; Eosinophils% 2.6 % (0-5); Hematocrit 42.3 % (37-47); Hemoglobin 13.5 g/dL (12.0-15.0); Lymphocyte % 14.1 % (19-41); Mean Corp Hgb Conc 31.9 g/dL (32-36); Mean Corpuscular Hgb 31.3 pg (27.0-32.0); Mean Corpuscular Volume 97.9 fL (81-99); Mean Platelet Vol. 11.4 fl (6.2-12.0); Monocyte# 0.81 X10^3/uL; Monocyte% 9.5 % (0-10); NRBC Flagged by Analyzer 0 % (0-5); Neutrophil # 6.24 X10^3/uL (2.7-7.7); Platelet Count 246 K/mm3 (150-450); RBC Distribution Width CV 14.3 % (11.6-14.6); RBC Distribution Width SD 51.8 fl (35.1-43.9); Red Blood Count 4.32 M/mm3 (4.2-5.4); White Blood Count 8.5 K/mm3 (4.4-11.0)
[2020-08-27 15:41] LABS: ALB/GLOB Ratio 0.8 RATIO (0.9-2.4); AST(SGOT) 24 U/L (15-37); Alanine Aminotransfer ALT/SGPT 26 U/L (13-56); Albumin, Serum 3.5 g/dL (3.2-5.0); Alkaline Phosphatase 81 U/L (45-117); Anion Gap 6 (5-15); BUN 28 mg/dL (7-18); BUN/Creat Ratio 18.1 RATIO (10-20); Calcium,Total 9.1 mg/dL (8.5-10.1); Chloride 105 mmol/L (98-107); Cholesterol 143 mg/dL (200); Creatinine, Serum 1.55 mg/dL (0.55-1.02); EST Glomerular Filtration Rate 34 mL/min (>60); Est Glom Filt Rate - Afr Amer 41 mL/min (>60); Globulin 4.5 g/dL (2.2-4.2); Glucose 87 mg/dL (74-106); High Density Lipoprotein 42 mg/dL; Potassium 4.5 mmol/L (3.5-5.1); Sodium Level 139 mmol/L (136-145); Triglycerides 114 mg/dL; Very Low Density Lipoprotein 23 mg/dL (5-40)
== END ==
PROVIDERS: PCP Family Medicine; Visit Provider Family Medicine
DX: E78.5 Hyperlipidemia, unspecified (principal); E11.29 Type 2 diabetes mellitus with other diabetic kidney complication; R80.9 Proteinuria, unspecified; Z51.81 Encounter for therapeutic drug level monitoring
CPT/HCPCS: 36415; 80053; 80061; 83036; 85025

== ENCOUNTER → 2020-11-10 08:32 | Outpatient (CLI) | payer MEDICARE, OTHER, SELFPAY ==
[2020-08-14 10:35] VITALS: BMI 40.7
--- NOTE | 2020-11-10 08:39 | RAD_ITS ---
STUDY: X-RAY - ESOPHAGUS (BARIUM SWALLOW) WITH FLUOROSCOPY REASON FOR EXAM: Female, 80 years old. GERD TECHNIQUE: 21 view(s) of the esophagus were obtained following swallowing of barium. FLUOROSCOPY TIME (if supplied): (48 seconds) minutes/seconds COMPARISON: None. FINDINGS: There is no demonstrated esophageal foreign body. There is evidence of tertiary contractions of the proximal esophagus. Small sliding hiatal hernia without gastroesophageal reflux. The patient ingested a 12 mm tablet of barium. The tablet is trapped at the gastroesophageal junction. There is atherosclerotic calcification of the aortic arch with tortuosity of the descending aorta. Normal visualized pulmonary parenchyma. There are diffuse degenerative changes of the visualized thoracic spine. RAD/Esophagus Dual Contrast IMPRESSION: Small sliding hiatal hernia with gastroesophageal reflux. The ingested 12 mm tablet of barium is trapped at the gastroesophageal junction. Electronically Signed: Jason White MD at 11:13 EDT , Service support ,
== END ==
PROVIDERS: PCP Family Medicine; Referring Provider Otolaryngology; Visit Provider Otolaryngology
DX: K21.9 Gastro-esophageal reflux disease without esophagitis (principal)
CPT/HCPCS: 74221

== ENCOUNTER → 2021-03-19 09:49 | Outpatient (CLI) | payer MEDICARE, OTHER, SELFPAY ==
--- NOTE | 2021-03-19 09:50 | BI_ITS ---
MAMMOGRAPHY - BILATERAL SCREENING REASON FOR EXAM: Female, 80 years old. Routine annual screening examination. PERTINENT HISTORY: Sister with breast cancer. TECHNIQUE: Digital bilateral breast vivek (3D mammographic acquisition) in the CC and MLO projections. 2-D mediolateral oblique (MLO) and craniocaudad (CC) views of both breasts were obtained. CAD: Full Field Digital Mammography with Computer Added Detection was performed. COMPARISON: Comparison is made with prior study 02/21/2020 and 11/30/2018. FINDINGS: Breast Composition: There are scattered areas of fibroglandular density. There are no dominant masses or suspicious calcifications. Stable small benign appearing bilateral axillary lymph nodes. No other significant abnormalities are identified. There has been no significant change since the prior study. BI/SCRN MAMM (CAD)W/VIVEK BILAT IMPRESSION: Stable bilateral screening mammogram. Yearly follow-up mammogram recommended. (A) ASSESSMENT CATEGORY: BIRADS Category 2: Benign. A letter regarding these results will be sent to the patient by the facility within 30 days. Approximately 10% of breast cancers are not detected by mammography. A normal mammogram should not delay biopsy of a clinically suspicious abnormality. [id number] Electronically Signed: Jason White MD at 11:15 EDT , Service support ,
== END ==
PROVIDERS: PCP Family Medicine; Referring Provider Family Medicine; Visit Provider Family Medicine
DX: Z12.31 Encounter for screening mammogram for malignant neoplasm of breast (principal)
CPT/HCPCS: 77063; 77067

== ENCOUNTER → 2022-02-25 | Outpatient (CLI) | payer MEDICARE, SELFPAY ==
[2022-02-25 10:10] LABS: Absolute Lymphocyte Count 1.43 X10^3/uL (0.83-4.51); Absolute Neutrophil Count 5.2 X10^3/uL (2.0-7.7); Basophil# 0.05 X10^3/uL; Basophil% 0.7 % (0-1); Eosinophils% 2.7 % (0-5); Hematocrit 43.6 % (37-47); Hemoglobin 14.1 g/dL (12.0-15.0); Lymphocyte # 1.43 X10^3/ul (0.83-4.51); Lymphocyte % 19.3 % (19-41); Mean Corp Hgb Conc 32.3 g/dL (32-36); Mean Corpuscular Volume 95.8 fL (81-99); Monocyte# 0.57 X10^3/uL; Monocyte% 7.7 % (0-10); NRBC Flagged by Analyzer 0 % (0-5); Neutrophil # 5.15 X10^3/uL (2.7-7.7); Neutrophil % 69.3 % (47-70); Platelet Count 222 K/mm3 (150-450); RBC Distribution Width CV 14.6 % (11.6-14.6); RBC Distribution Width SD 51.5 fl (35.1-43.9); Red Blood Count 4.55 M/mm3 (4.2-5.4); White Blood Count 7.4 K/mm3 (4.4-11.0)
[2022-02-25 10:39] LABS: ALB/GLOB Ratio 0.7 RATIO (0.9-2.4); AST(SGOT) 17 U/L (15-37); Alanine Aminotransfer ALT/SGPT 20 U/L (13-56); Albumin, Serum 3.5 g/dL (3.2-5.0); Alkaline Phosphatase 78 U/L (45-117); Anion Gap 5 (5-15); BUN 31 mg/dL (7-18); BUN/Creat Ratio 23.7 RATIO (10-20); Calcium,Total 9.3 mg/dL (8.5-10.1); Chloride 104 mmol/L (98-107); Creatinine, Serum 1.31 mg/dL (0.55-1.02); EST Glomerular Filtration Rate 41 mL/min (>60); Est Glom Filt Rate - Afr Amer 50 mL/min (>60); Globulin 4.8 g/dL (2.2-4.2); Glucose 121 mg/dL (74-106); Potassium 4.1 mmol/L (3.5-5.1); Protein, Total 8.3 g/dL (6.4-8.2); Sodium Level 139 mmol/L (136-145)
[2022-02-25 11:05] LABS: Hemoglobin A1c 6.4 % (3.8-5.6)
== END | disposition home or self-care (01) ==
LOC: MTLAB 08:48
PROVIDERS: PCP Family Medicine; Referring Provider Family Medicine; Visit Provider Family Medicine
DX: E78.5 Hyperlipidemia, unspecified (principal); E11.22 Type 2 diabetes mellitus with diabetic chronic kidney disease; N18.32 Chronic kidney disease, stage 3b; R53.83 Other fatigue
CPT/HCPCS: 36415; 80053; 83036; 84443; 85025

== ENCOUNTER → 2022-05-09 | Outpatient (CLI) | payer MEDICARE, SELFPAY ==
--- NOTE | 2022-05-09 10:43 | BI_ITS ---
MAMMOGRAPHY - BILATERAL SCREENING REASON FOR EXAM: Female, 81 years old. Routine annual screening examination. PERTINENT HISTORY: Sister with breast cancer. TECHNIQUE: Digital bilateral breast vivek (3D mammographic acquisition) in the CC and MLO projections. 2-D mediolateral oblique (MLO) and craniocaudad (CC) views of both breasts were obtained. CAD: Full Field Digital Mammography with Computer Added Detection was performed. COMPARISON: 03/19/2021, 02/21/2020. FINDINGS: Breast Composition: There are scattered areas of fibroglandular density. There are no dominant masses or suspicious calcifications. Stable small benign-appearing bilateral axillary lymph nodes. Stable bilateral benign-appearing calcifications. No other significant abnormalities are identified. There has been no significant change since the prior study. BI/SCRN MAMM (CAD)W/VIVEK BILAT IMPRESSION: Stable bilateral screening mammogram. Yearly follow-up mammogram recommended. (A) ASSESSMENT CATEGORY: BIRADS Category 2: Benign. A letter regarding these results will be sent to the patient by the facility within 30 days. Approximately 10% of breast cancers are not detected by mammography. A normal mammogram should not delay biopsy of a clinically suspicious abnormality. Electronically Signed: Kush Pimentel, at 9:11 EST ,
== END | disposition home or self-care (01) ==
LOC: OPBI 10:41
PROVIDERS: PCP Family Medicine; Referring Provider Family Medicine; Visit Provider Family Medicine
DX: Z12.31 Encounter for screening mammogram for malignant neoplasm of breast (principal); Z80.3 Family history of malignant neoplasm of breast
CPT/HCPCS: 77063; 77067

== ENCOUNTER 2022-05-16 22:11 | Emergency (ER) | payer MEDICARE, SELFPAY ==
[2022-05-16 22:11] VITALS: BP 151/90; PULSE 85; RESP 18; TEMP 36.5; O2SAT 98; BMI 41.0
--- NOTE | 2022-05-16 23:23 | EX.ED.DYSGE1 ---
HPI History of Present Illness Chief Complaint: Nosebleed Detail of Chief Complaint: Epistaxis right nares Informant: patient and spouse/S.O. Onset/Context/Timing Onset: Weeks (Bleeding started 1 week ago.) Context: Sudden Onset Timing: Intermittent Quality: Red blood per right naris Location: Right naris Current Severity: Mild Maximum Severity: Severe Worsened by: Nothing Relieved by: Nothing Associated Symptoms Associated Symptoms: None Narrative Narrative: Patient is an 81-year-old woman with history of hypertension. She presents with spontaneous epistaxis. She is has an appointment with Dr. Gary Mendiola for this coming . She is [place] bleeding for proxy 1 week. She presents today because of a significant bleeding. She is not on an antiplatelet or anticoagulant. She denies bleeding easily. She denies bruising easily. She denies bleeding of her gums when she brushes her teeth. She denies hematuria. Denies black or maroon-colored stool. Prior similar symptoms: No Recent Illness/Hospitalization: No PFSH PFSH Medical History Arthritis Cancer CPAP (continuous positive airway pressure) dependence Diabetes Dyspnea GERD (gastroesophageal reflux disease) Hiatal hernia Hiatal hernia Hiatal hernia with gastroesophageal reflux History of gallstones Hypersomnia Hypertension Incontinence JOSE C (obstructive sleep apnea) Seasonal allergies Sinusitis Sleep apnea Strain of left knee URI (upper respiratory infection) Home Medications aspirin 81 mg tablet,delayed release 81 mg PO DAILY@0800 01/20/16 [History Last Taken Unknown] hydrochlorothiazide 25 mg tablet 25 mg PO DAILY 01/20/16 [History Last Taken Unknown] metoprolol tartrate 50 mg tablet 50 mg PO DAILY 01/20/16 [History Last Taken 09/25/18 06:00 50 MG] ketoconazole 2 % shampoo 1 applic topical Q2W 09/27/17 [History Last Taken Unknown] ergocalciferol (vitamin D2) 1,250 mcg (50,000 unit) capsule 50,000 unit PO Q7D 09/21/18 [History Last Taken Unknown] omeprazole 40 mg capsule,delayed release 40 mg PO BID 09/21/18 [History Last Taken Unknown] citalopram 10 mg tablet 10 mg PO DAILY 12/07/19 [History Last Taken Unknown] cranberry 400 mg capsule 400 mg PO DAILY 02/11/21 [History Last Taken Unknown] mv-min-vit C 1,000 mg-elderberry 50 mg-herb 35.5mg effervescent tablet (Airborne Elderberry) ea PO 02/11/21 [History Last Taken Unknown] meloxicam 15 mg tablet 15 mg PO DAILY 05/16/22 [History Last Taken Unknown] amoxicillin 500 mg tablet 500 mg PO TID #12 tabs 05/17/22 [Rx Last Taken Unknown] Allergy/AdvReac Type Severity Reaction Status Date / Time No Known Allergies Allergy Verified 05/16/22 22:13 Family History Other Arthritis Diabetes Hypertension Surgical History History of back surgery History of bladder repair surgery History of right hip replacement S/P laparoscopic cholecystectomy Social History (Updated 05/16/22 @ 23:[address] To Lockett MD) household members: spouse Smoking Status: Never smoker alcohol intake: never ROS ROS ED Constitutional Constitutional ED: Denies chills, fever(s), subjective, sweats or weight loss Eyes Eyes: Denies blurry vision, change in vision or diplopia ENT ENT ED: Denies ear pain, rhinorrhea or sore throat Cardiovascular Cardiovascular: Denies chest pain, palpitations or racing heartbeat Neurologic Neurologic: Denies headache(s) Hematologic/Lymphatic Hematologic/Lymphatic: Denies anemia, easy bleeding, easy bruising or lymphadenopathy EXAM Physical Exam Const Vital Signs: 05/16/22 22:11 05/16/22 23:29 Temperature 97.7 F L Temperature Source Temporal Pulse Rate 85 Respiratory Rate 18 Blood Pressure 151/90 H 222/111 H Blood Pressure Mean 110 148 Pulse Ox 98 Oxygen Delivery Method Room Air Positive well nourished, well developed and obese General Appearance ED: well developed and NAD; Negative for cyanotic, diaphoretic or pallor Nutritional Appearance: obese HEENT Reports moist mucous membranes HEENT Narrative: Ears normal. Nares revealed large blood clots right and left vestibule. There is blood in the posterior pharynx. Teeth are normal. Uvula is midline. Head is atraumatic normocephalic. Eyes PERRL and EOMs intact bilaterally General Eye ED: Negative for pale conjunctiva or scleral icterus Neck no lymphadenopathy, supple and no JVD Resp normal respiratory effort and clear to auscultation bilaterally Cardio regular rate, regular rhythm, S1 normal heart sound, S2 normal heart sound and no murmurs Extremity normal to inspection General Extremety ED: Yes edema General Extremity: edema Neuro oriented x3, CN's II-XII intact bilaterally and no sensory deficits noted Sensorium / Orientation: alert Motor Exam: strength 5/5 throughout Psych mental status grossly normal Skin no rashes or lesions noted and no wounds General Skin Exam: Negative for jaundice or pallor MDM MDM MDM Narrative Medical decision making narrative: Several attempts were made to clear the blood clots from the right and left vestibule. There is a large clot still noted on the right side. The nose was anesthetized with Indra solution. After reexamination was determined the bleeding is from the right side. There is blood noted above the inferior turbinate. Patient still has blood noted in the posterior pharynx. Suspect posterior bleed. A 5.5 cm rapid Rhino pack was placed. There was some difficulty inserting the pack. Patient did complain of some discomfort. Her blood pressure is elevated which may be due to the pain from insertion of the pack. We will have nurse reassess and walk patient to determine if she rebleeds. If she does not we will place on antibiotics discharged to home to keep appointment with Dr. Rodo Mendiola Patient did respond to the clonidine. Blood pressure is 167/105. Will discharge to home. Treatment and Re-Evaluation Narrative: Ambulated the patient. She did not rebleed. Her blood pressure is markedly elevated, 217/116. Clonidine was ordered. Procedures Other Procedures Procedure(s): Placement of 5.5 cm rapid Rhino pack right naris Discharge Plan Triage Chief Complaint: Nosebleed ED Provider: To Lockett Dx/Rx/DC Orders Clinical Impression: Epistaxis, recurrent, JOSE C (obstructive sleep apnea), BMI 40.0-44.9, adult, Accelerated essential hypertension Instructions: ED Epistaxis (Adult), ED Hypertension, Established Prescriptions: New amoxicillin 500 mg tablet 500 mg PO TID Qty: 12 0RF No Action ketoconazole 2 % shampoo 1 applic TOPICAL Q2W Airborne Elderberry 1,000 mg-50 mg-35.5 mg tablet, effervescent PO cranberry 400 mg capsule 400 mg PO DAILY Rx Instructions: administer with a meal aspirin 81 MG tablet 81 mg PO DAILY@0800 metoprolol tartrate 50 MG tablet 50 mg PO DAILY hydrochlorothiazide 25 MG tablet 25 mg PO DAILY ergocalciferol (vitamin D2) 50,000 UNIT capsule 50,000 unit PO Q7D omeprazole 40 MG capsule,delayed release(DR/EC) 40 mg PO BID citalopram 10 mg tablet 10 mg PO DAILY Label Comments: TAKE 1 TABLET BY MOUTH EVERY DAY meloxicam 15 mg tablet 15 mg PO DAILY Primary Care Provider: Elaina Butts Referrals: Rodo Del Cid MD [Med Staff - Active Staff] - Keep Gabbie appointment Elaina Butts DO [Primary Care Provider] - 3-5 Days Disposition Disposition: Home, Self Care
[2022-05-16 23:29] VITALS: BP 222/111
[2022-05-16] MEDS: Mixture 30 ML Bottle 10 ML TOPICAL (23:43)
[2022-05-16] MEDS: AMOXICILLIN 500 MG CAPSULE PO (23:43)
[2022-05-16] MEDS: cloNIDine HCl 0.2 MG Tablet PO (23:43)
[2022-05-17 00:49] VITALS: BP 179/101; PULSE 78; RESP 16; O2SAT 97
== END 2022-05-17 01:12 | disposition home or self-care (01) ==
PROVIDERS: Emergency Provider Emergency Medicine; PCP Family Medicine; Visit Provider Emergency Medicine
DX: R04.0 Epistaxis (principal); E11.9 Type 2 diabetes mellitus without complications; G47.33 Obstructive sleep apnea (adult) (pediatric); I10 Essential (primary) hypertension
CPT/HCPCS: 30905; 99283

== ENCOUNTER → 2022-05-19 | Outpatient (CLI) | payer MEDICARE, SELFPAY ==
[2022-05-19 15:38] LABS: Absolute Lymphocyte Count 1.54 X10^3/uL (0.83-4.51); Absolute Neutrophil Count 8.4 X10^3/uL (2.0-7.7); Basophil# 0.06 X10^3/uL; Basophil% 0.5 % (0-1); Eosinophil# 0.22 X10^3/uL; Eosinophils% 1.9 % (0-5); Hematocrit 43.1 % (37-47); Hemoglobin 13.8 g/dL (12.0-15.0); Lymphocyte # 1.54 X10^3/ul (0.83-4.51); Lymphocyte % 13.4 % (19-41); Mean Corpuscular Hgb 30.5 pg (27.0-32.0); Mean Corpuscular Volume 95.4 fL (81-99); Mean Platelet Vol. 11.4 fl (6.2-12.0); Monocyte# 1.21 X10^3/uL; Monocyte% 10.5 % (0-10); NRBC Flagged by Analyzer 0 % (0-5); Neutrophil # 8.43 X10^3/uL (2.7-7.7); Neutrophil % 73.4 % (47-70); Platelet Count 260 K/mm3 (150-450); RBC Distribution Width CV 14.1 % (11.6-14.6); RBC Distribution Width SD 49.1 fl (35.1-43.9); Red Blood Count 4.52 M/mm3 (4.2-5.4); White Blood Count 11.5 K/mm3 (4.4-11.0)
[2022-05-19 16:09] LABS: ALB/GLOB Ratio 0.7 RATIO (0.9-2.4); AST(SGOT) 16 U/L (15-37); Alanine Aminotransfer ALT/SGPT 30 U/L (13-56); Albumin, Serum 3.4 g/dL (3.2-5.0); Alkaline Phosphatase 77 U/L (45-117); Anion Gap 9 (5-15); BUN 24 mg/dL (7-18); Calcium,Total 9.2 mg/dL (8.5-10.1); Chloride 98 mmol/L (98-107); Creatinine, Serum 1.72 mg/dL (0.55-1.02); EST Glomerular Filtration Rate 30 mL/min (>60); Est Glom Filt Rate - Afr Amer 37 mL/min (>60); Glucose 117 mg/dL (74-106); Potassium 4.4 mmol/L (3.5-5.1); Protein, Total 8.4 g/dL (6.4-8.2); Sodium Level 137 mmol/L (136-145)
== END | disposition home or self-care (01) ==
LOC: BFHLAB 13:39
PROVIDERS: PCP Family Medicine; Visit Provider Family Medicine
DX: I10 Essential (primary) hypertension (principal); Z51.81 Encounter for therapeutic drug level monitoring
CPT/HCPCS: 36415; 80053; 84443; 85025

== ENCOUNTER → 2022-05-30 | Outpatient (CLI) | payer MEDICARE, SELFPAY ==
[2022-05-30 12:48] LABS: Color, Urine Yellow (Yellow); Glucose, Dipstick Normal (Normal); Ketone-Dipstick 5 mg/dl (Negative); Leukocyte Esterase-Dipstick 100 /ul (Negative); Nitrite-Dipstick Negative (Negative); Occult Blood-Urine 25 /ul (Negative); Protein-Dipstick 30 mg/dl (Negative); Specific Gravity, Urine 1.015 (1.002-1.030); Urine Clarity Turbid (Clear); Urine Urobilinogen 1 mg/dl (Normal)
[2022-05-30 12:49] LABS: Urine Bilirubin Dipstick 1 mg/dL (Negative)
[2022-05-30 13:11] LABS: Anion Gap 7 (5-15); BUN 41 mg/dL (7-18); BUN/Creat Ratio 24.4 RATIO (10-20); Calcium,Total 9.3 mg/dL (8.5-10.1); Chloride 103 mmol/L (98-107); Creatinine, Serum 1.68 mg/dL (0.55-1.02); EST Glomerular Filtration Rate 31 mL/min (>60); Est Glom Filt Rate - Afr Amer 38 mL/min (>60); Glucose 125 mg/dL (74-106); Potassium 4.3 mmol/L (3.5-5.1); Sodium Level 138 mmol/L (136-145)
[2022-05-30 13:26] LABS: Microalbumin:Creatinine Ratio 34.9 mg/g CRE (<30 mg/g CRE)
== END | disposition home or self-care (01) ==
LOC: BFHLAB 08:49
PROVIDERS: PCP Family Medicine; Visit Provider Family Medicine
DX: E11.22 Type 2 diabetes mellitus with diabetic chronic kidney disease (principal); N18.31 Chronic kidney disease, stage 3a; I12.9 Hypertensive chronic kidney disease with stage 1 through stage 4 chronic kidney disease, or unspecified chronic kidney disease; Z51.81 Encounter for therapeutic drug level monitoring
CPT/HCPCS: 36415; 80048; 81002; 82043; 82570

== ENCOUNTER → 2022-09-20 | Outpatient (CLI) | payer MEDICARE, SELFPAY ==
--- NOTE | 2022-09-20 09:22 | EKG12_ITS ---
Test Reason : ARRHYTHMIA Blood Pressure : / mmHG Vent. Rate : 089 BPM Atrial Rate : 113 BPM P-R Int : 000 ms QRS Dur : 074 ms QT Int : 370 ms P-R-T Axes : 000 014 -12 degrees QTc Int : 450 ms Atrial fibrillation Nonspecific T wave abnormality Abnormal ECG Confirmed by LISA WIN, AFASNEH ([id number]), newspaper managing editor STEPHIE MEZA ([id number]) on 09/21/2022 9:56:21 AM Referred By: MARIE Confirmed By:JAYCEE GONZALEZ MD
== END | disposition home or self-care (01) ==
PROVIDERS: PCP Family Medicine; Visit Provider Nurse Practitioner Acute Care
DX: I49.9 Cardiac arrhythmia, unspecified (principal); R00.2 Palpitations
CPT/HCPCS: 93005

== ENCOUNTER → 2022-10-24 | Outpatient (CLI) | payer MEDICARE, SELFPAY ==
--- NOTE | 2022-10-24 07:23 | ECHOD_ITS ---
Reason For Study: YING, Abn EKG Procedure This was a 2D Doppler, Color Flow transthoracic echocardiogram. Exam performed in department. Left Ventricle Normal LV size. Left ventricular systolic function is normal. The estimated ejection fraction is 60 %. No regional wall motion abnormalities noted. Right Ventricle Normal RV size. Normal systolic function. Atria The left atrium is mildly enlarged. Normal right atrium. Mitral Valve Bileaflet diffuse mitral valve thickening. Mild-Moderate (1-2+) eccentric mitral valve insufficiency. Tricuspid Valve Normal tricuspid valve. Mild tricuspid valve insufficiency. Pulmonary artery systolic pressure is 35 mmHg. Aortic Valve Trisinus/trileaflet aortic valve. Great Vessels Normal aortic root. Pericardium/Pleural No pericardial effusion. MMode/2D Measurements & Calculations LVIDd: 4.2 cm IVSd: 0.98 cm Ao root diam: 2.9 cm LVIDs: 2.3 cm LVPWd: 0.98 cm RVDd: 2.5 cm FS: 44.8 % LAV(MOD-bp): 64.7 ml LVAd ap4: 19.3 cm2 SV(MOD-sp4): 34.0 ml LAV(MOD-bp) Indexed: 33.9 ml/m2 LVLd ap4: 6.1 cm LAV(MOD-sp2): 57.4 ml EDV(MOD-sp4): 51.7 ml LAV(MOD-sp4): 63.2 ml EDV(sp4-el): 51.5 ml LVAs ap4: 9.8 cm2 LVLs ap4: 4.8 cm ESV(MOD-sp4): 17.7 ml ESV(sp4-el): 16.9 ml EF(MOD-sp4): 65.8 % EF(sp4-el): 67.2 % SV(sp4-el): 34.6 ml LA dimension(2D): 4.9 cm LA A4 area: 22.8 cm2 RA A4 area: 20.0 cm2 Time Measurements MV dec time: 0.17 sec Doppler Measurements & Calculations MV E max maya: 120.4 cm/sec MV V2 max: 144.1 cm/sec Ao V2 max: 135.5 cm/sec MV max P.3 mmHg Ao max P.4 mmHg MV V2 mean: 50.4 cm/sec Ao V2 mean: 101.2 cm/sec MV mean P.7 mmHg Ao mean P.4 mmHg MV V2 VTI: 33.5 cm Ao V2 VTI: 30.4 cm AV (velocity ratio): 0.84 LV V1 max: 118.8 cm/sec PA V2 max: 74.5 cm/sec TR max maya: 282.9 cm/sec LV V1 max P.7 mmHg TR max P.0 mmHg LV V1 mean P.0 mmHg LV V1 mean: 80.5 cm/sec LV V1 VTI: 25.6 cm ECHO/Echo Complete Interpretation Summary Normal LV size. Left ventricular systolic function is normal. The estimated ejection fraction is 60 %. Mild-Moderate (1-2+) eccentric mitral valve insufficiency. Bileaflet diffuse mitral valve thickening. Mild tricuspid valve insufficiency. Ordering Physician: Destiney Jenkins Referring Physician: Elaina Butts Performed By: Katt Reyes, CAMILLE, RVT
--- NOTE | 2022-10-24 10:34 | STRESSREP ---
Stress Test Report Pharmacologic myocardial perfusion stress test. 82-year-old lady with a history of dyspnea on exertion Resting EKG demonstrates sinus rhythm with a rate of 74 bpm. Resting blood pressure is 128/74 mmHg. 0.4 mg of regadenoson was infused per usual protocol followed by rapid intravenous saline flush injection. Continuous EKG monitoring was performed. The maximum heart rate was 97 bpm which was 70% of max impacted heart rate the maximum workload was 1 metabolic equivalent. At rest there were no ST or T wave changes noted to suggest ischemia and at peak infusion nonspecific ST changes were noted which did not meet the criteria for ischemia. No clinical angina is noted. The final blood pressure was 116/72 mmHg. Myocardial perfusion protocol. 11.9 mCi of technetium 99m sestamibi was injected at rest. 0.4 mg of regadenoson was infused per usual protocol. At peak infusion 35.1 mCi of technetium 99m sestamibi was injected stress images were obtained stress and rest images were reconstructed and compared in the short axis vertical long and horizontal long axis. Gated images were also obtained. Perfusion SPECT analysis: Review of the stress images demonstrate normal uptake of tracer noted in all areas of the myocardium. The resting images similar demonstrated normal uptake of tracer noted in all areas of the myocardium. No areas of reversibility are noted to suggest ischemia and no previous infarct is noted. Gated SPECT analysis: The gated ejection fraction is 76%. Conclusion: Normal pharmacologic myocardial perfusion stress test. Preserved ejection fraction.
== END | disposition home or self-care (01) ==
LOC: CVS 07:22
PROVIDERS: PCP Family Medicine; Referring Provider Physician Assistant Medical; Visit Provider Physician Assistant Medical
DX: R06.09 Other forms of dyspnea (principal); I48.91 Unspecified atrial fibrillation; R94.31 Abnormal electrocardiogram [ECG] [EKG]
CPT/HCPCS: 78452; 93017; 93306; A9500; J2785

== ENCOUNTER → 2023-02-27 | Outpatient (CLI) | payer MEDICARE, SELFPAY ==
[2023-02-27 12:16] LABS: Absolute Lymphocyte Count 1.25 X10^3/uL (0.83-4.51); Absolute Neutrophil Count 6.6 X10^3/uL (2.0-7.7); Basophil# 0.04 X10^3/uL; Basophil% 0.5 % (0-1); Eosinophils% 2.3 % (0-5); Hematocrit 41.8 % (37-47); Hemoglobin 13.7 g/dL (12.0-15.0); Lymphocyte # 1.25 X10^3/ul (0.83-4.51); Lymphocyte % 14.3 % (19-41); Mean Corp Hgb Conc 32.8 g/dL (32-36); Mean Corpuscular Hgb 32.2 pg (27.0-32.0); Mean Corpuscular Volume 98.1 fL (81-99); Mean Platelet Vol. 11.4 fl (6.2-12.0); Monocyte# 0.62 X10^3/uL; Monocyte% 7.1 % (0-10); NRBC Flagged by Analyzer 0 % (0-5); Neutrophil % 75.3 % (47-70); Platelet Count 225 K/mm3 (150-450); RBC Distribution Width SD 50.3 fl (35.1-43.9); Red Blood Count 4.26 M/mm3 (4.2-5.4); White Blood Count 8.8 K/mm3 (4.4-11.0)
[2023-02-27 13:06] LABS: ALB/GLOB Ratio 0.7 RATIO (0.9-2.4); AST(SGOT) 19 U/L (15-37); Alanine Aminotransfer ALT/SGPT 21 U/L (13-56); Albumin, Serum 3.4 g/dL (3.2-5.0); Alkaline Phosphatase 71 U/L (45-117); Anion Gap 8 (5-15); BUN 27 mg/dL (7-18); BUN/Creat Ratio 19.1 RATIO (10-20); Calcium,Total 9.1 mg/dL (8.5-10.1); Chloride 103 mmol/L (98-107); Cholesterol 161 mg/dL (200); Creatinine, Serum 1.41 mg/dL (0.55-1.02); EST Glomerular Filtration Rate 38 mL/min (>60); Est Glom Filt Rate - Afr Amer 46 mL/min (>60); Glucose 125 mg/dL (74-106); High Density Lipoprotein 40 mg/dL; Potassium 4.1 mmol/L (3.5-5.1); Protein, Total 8.4 g/dL (6.4-8.2); Sodium Level 138 mmol/L (136-145); Thyroid Stim Hormone (TSH) 1.47 uIU/mL (0.358-3.74); Triglycerides 131 mg/dL; Very Low Density Lipoprotein 26 mg/dL (5-40)
[2023-02-27 13:31] LABS: Hemoglobin A1c 6.4 % (3.8-5.6)
== END | disposition home or self-care (01) ==
PROVIDERS: PCP Family Medicine; Referring Provider Family Medicine; Visit Provider Family Medicine
DX: E78.5 Hyperlipidemia, unspecified (principal); E11.9 Type 2 diabetes mellitus without complications; I10 Essential (primary) hypertension; Z51.81 Encounter for therapeutic drug level monitoring
CPT/HCPCS: 36415; 80053; 80061; 83036; 84443; 85025

== ENCOUNTER → 2023-03-01 | Outpatient (CLI) | payer MEDICARE, SELFPAY ==
[2023-03-01 16:22] LABS: Microalbumin,Random Urine 70.8 mg/L (NO RANGE EST.); Microalbumin:Creatinine Ratio 29.5 mg/g CRE (<30 mg/g CRE)
== END | disposition home or self-care (01) ==
LOC: LABSPEC 13:52
PROVIDERS: PCP Family Medicine; Referring Provider Family Medicine; Visit Provider Family Medicine
DX: E11.9 Type 2 diabetes mellitus without complications (principal); I10 Essential (primary) hypertension; E78.5 Hyperlipidemia, unspecified; Z51.81 Encounter for therapeutic drug level monitoring
CPT/HCPCS: 82043; 82570

== ENCOUNTER → 2023-05-08 | Outpatient (CLI) | payer MEDICARE, SELFPAY ==
--- NOTE | 2023-05-08 07:23 | US_ITS ---
PROCEDURES: ULTRASOUND AORTA REASON FOR EXAM: Female, 82 years old. Screening TECHNIQUE: Ultrasound evaluation of the aorta was performed with real-time and static fish-scale imaging. COMPARISON: CT dated 09/14/2018 FINDINGS: There is no elongation or tortuosity of the abdominal aorta. Aorta measures: Proximal 2.3 x 2.1 cm. Middle 2.0 x 1.8 cm. Distal 1.7 x 1.5 cm. Right iliac artery measures: 1.3 x 1.2 cm. Left iliac artery measures: 1.2 x 1.0 cm. There is no demonstrated aneurysm.. US/Aorta IMPRESSION: Normal abdominal aorta. Electronically Signed: Sharath Ann MD at 8:54 EST ,
== END | disposition home or self-care (01) ==
PROVIDERS: PCP Family Medicine; Referring Provider Family Medicine; Visit Provider Family Medicine
DX: Z13.6 Encounter for screening for cardiovascular disorders (principal)
CPT/HCPCS: 76775

== ENCOUNTER → 2023-05-16 | Outpatient (CLI) | payer MEDICARE, SELFPAY ==
--- NOTE | 2023-05-16 10:12 | BI_ITS ---
MAMMOGRAPHY - BILATERAL SCREENING REASON FOR EXAM: Female, 82 years old. Routine annual screening examination. PERTINENT HISTORY: Sister with breast cancer. TECHNIQUE: Digital bilateral breast vivek (3D mammographic acquisition) in the CC and MLO projections. 2-D mediolateral oblique (MLO) and craniocaudad (CC) views of both breasts were obtained. CAD: Full Field Digital Mammography with Computer Added Detection was performed. COMPARISON: Comparison is made with prior examination of May 09, 2022 and March 19, 2021. FINDINGS: Breast Composition: There are scattered areas of fibroglandular density. There are no dominant masses or suspicious calcifications. No other significant abnormalities are identified. There has been no significant change since the prior study. BI/SCRN MAMM (CAD)W/VIVEK BILAT IMPRESSION: Stable bilateral screening mammogram. Yearly follow-up mammogram recommended. (A) ASSESSMENT CATEGORY: BIRADS Category 1: Negative. A letter regarding these results will be sent to the patient by the facility within 30 days. Approximately 10% of breast cancers are not detected by mammography. A normal mammogram should not delay biopsy of a clinically suspicious abnormality. [id number] Electronically Signed: Jason White MD at 15:01 EST ,
--- NOTE | 2023-05-16 10:16 | BD_ITS ---
STUDY: DUAL ENERGY X-RAY ABSORPTIOMETRY / DXA REASON FOR EXAM: Female, 82 years old. M810 TECHNIQUE: Bone Mineral Density (BMD) measurements of lumbar spine and left hip were obtained. COMPARISON: Comparison is made with prior study dated May 21, 2014. FINDINGS: Lumbar Spine (L1-L4): g/cm2 (0.868) / T-score (-1.4) / Z-score (1.3) Findings are suggestive of osteopenia with a low fracture risk. Left Femur Total: g/cm2 (0.833) / T-score (-0.9) / Z-score (1.3) Left Femoral Neck: g/cm2 (0.636) / T-score (-1.9) / Z-score (0.5) The T-Scores on the most recent prior examination were: Lumbar Spine (L1-L4): There has been improvement of bone density since the previous examination. Left Femur Total: which represents a worsening of 5.7%. BD/Dexa Bone Density Study IMPRESSION: The patient is considered osteopenic as outlined below according to World Thom Organization (WHO) criteria with a moderate fracture risk. There has been worsening of bone density since the previous examination. Reference Information: The T-score is the number of standard deviations above or below the standard which is normal for young adults at their peak bone mineral density. The World Health Organization (WHO) interprets the T-scores as follows: Above -1 Normal bone density Between -1 and -2.5 Osteopenia Equal to / or below -2.5 Osteoporosis As a practical clinical guideline, osteopenia may be graded as follows: Mild -1 through -1.5 Moderate -1.6 through -2.0 Severe -2.1 through -2.4 The Z-score is the number of standard deviations above or below age-matched controls. A Z-score of less than -1.5 would be considered abnormal. References: 1. NIH Osteoporosis and Related Bone Diseases www osteo.org 2. International Society for Clinical Densitometry www iscd.org 3. National Osteoporosis Foundation www nof.org Electronically Signed: Jason White MD at 10:14 EST ,
== END | disposition home or self-care (01) ==
PROVIDERS: PCP Family Medicine; Referring Provider Family Medicine; Visit Provider Family Medicine
DX: Z12.31 Encounter for screening mammogram for malignant neoplasm of breast (principal); M81.0 Age-related osteoporosis without current pathological fracture; Z80.3 Family history of malignant neoplasm of breast
CPT/HCPCS: 77063; 77067; 77080

== ENCOUNTER → 2023-09-05 | Outpatient (CLI) | payer MEDICARE, SELFPAY ==
[2023-09-05 10:20] LABS: Absolute Lymphocyte Count 1.39 X10^3/uL (0.83-4.51); Basophil# 0.05 X10^3/uL; Basophil% 0.6 % (0-1); Eosinophil# 0.21 X10^3/uL; Eosinophils% 2.5 % (0-5); Hematocrit 37.7 % (37-47); Hemoglobin 12.2 g/dL (12.0-15.0); Lymphocyte # 1.39 X10^3/ul (0.83-4.51); Lymphocyte % 16.7 % (19-41); Mean Corp Hgb Conc 32.4 g/dL (32-36); Mean Corpuscular Volume 95.9 fL (81-99); Mean Platelet Vol. 11.2 fl (6.2-12.0); Monocyte# 0.63 X10^3/uL; Monocyte% 7.6 % (0-10); NRBC Flagged by Analyzer 0 % (0-5); Neutrophil # 6.02 X10^3/uL (2.7-7.7); Neutrophil % 72.2 % (47-70); Platelet Count 217 K/mm3 (150-450); RBC Distribution Width CV 14.1 % (11.6-14.6); RBC Distribution Width SD 49.8 fl (35.1-43.9); Red Blood Count 3.93 M/mm3 (4.2-5.4); White Blood Count 8.3 K/mm3 (4.4-11.0)
[2023-09-05 10:44] LABS: Hemoglobin A1c 6.1 % (3.8-5.6)
[2023-09-05 10:45] LABS: ALB/GLOB Ratio 0.7 RATIO (0.9-2.4); AST(SGOT) 19 U/L (15-37); Alanine Aminotransfer ALT/SGPT 20 U/L (13-56); Albumin, Serum 3.2 g/dL (3.2-5.0); Alkaline Phosphatase 52 U/L (45-117); Anion Gap 5 (5-15); BUN 28 mg/dL (7-18); BUN/Creat Ratio 17.7 RATIO (10-20); Calcium,Total 9.7 mg/dL (8.5-10.1); Chloride 104 mmol/L (98-107); Creatinine, Serum 1.58 mg/dL (0.55-1.02); EST Glomerular Filtration Rate 33 mL/min (>60); Est Glom Filt Rate - Afr Amer 40 mL/min (>60); Globulin 4.5 g/dL (2.2-4.2); Glucose 114 mg/dL (74-106); Potassium 3.8 mmol/L (3.5-5.1); Protein, Total 7.7 g/dL (6.4-8.2); Sodium Level 138 mmol/L (136-145)
== END | disposition home or self-care (01) ==
PROVIDERS: PCP Family Medicine; Referring Provider Family Medicine; Visit Provider Family Medicine
DX: I10 Essential (primary) hypertension (principal); E11.9 Type 2 diabetes mellitus without complications; Z51.81 Encounter for therapeutic drug level monitoring
CPT/HCPCS: 36415; 80053; 83036; 85025

== ENCOUNTER → 2024-03-04 | Outpatient (CLI) | payer MEDICARE, SELFPAY ==
[2024-03-04 10:33] LABS: Absolute Lymphocyte Count 1.22 X10^3/uL (0.83-4.51); Absolute Neutrophil Count 4.5 X10^3/uL (2.0-7.7); Basophil# 0.05 X10^3/uL; Basophil% 0.8 % (0-1); Eosinophil# 0.15 X10^3/uL; Eosinophils% 2.3 % (0-5); Hematocrit 36.7 % (37-47); Hemoglobin 11.9 g/dL (12.0-15.0); Lymphocyte # 1.22 X10^3/ul (0.83-4.51); Lymphocyte % 18.8 % (19-41); Mean Corp Hgb Conc 32.4 g/dL (32-36); Mean Corpuscular Hgb 31.4 pg (27.0-32.0); Mean Corpuscular Volume 96.8 fL (81-99); Mean Platelet Vol. 11.7 fl (6.2-12.0); Monocyte# 0.55 X10^3/uL; Monocyte% 8.5 % (0-10); NRBC Flagged by Analyzer 0 % (0-5); Neutrophil % 69.4 % (47-70); Platelet Count 213 K/mm3 (150-450); RBC Distribution Width CV 13.1 % (11.6-14.6); RBC Distribution Width SD 46.4 fl (35.1-43.9); Red Blood Count 3.79 M/mm3 (4.2-5.4); White Blood Count 6.5 K/mm3 (4.4-11.0)
[2024-03-04 10:54] LABS: Hemoglobin A1c 5.8 % (3.8-5.6)
[2024-03-04 11:10] LABS: ALB/GLOB Ratio 0.8 RATIO (0.9-2.4); AST(SGOT) 14 U/L (15-37); Alanine Aminotransfer ALT/SGPT 15 U/L (13-56); Albumin, Serum 3.3 g/dL (3.2-5.0); Alkaline Phosphatase 61 U/L (45-117); Anion Gap 7 (5-15); BUN 52 mg/dL (7-18); BUN/Creat Ratio 17.3 RATIO (10-20); Calcium,Total 9.6 mg/dL (8.5-10.1); Chloride 103 mmol/L (98-107); Cholesterol 133 mg/dL (200); EST Glomerular Filtration Rate 16 mL/min (>60); Est Glom Filt Rate - Afr Amer 19 mL/min (>60); Globulin 4.4 g/dL (2.2-4.2); Glucose 114 mg/dL (74-106); High Density Lipoprotein 38 mg/dL; Potassium 3.5 mmol/L (3.5-5.1); Protein, Total 7.7 g/dL (6.4-8.2); Sodium Level 137 mmol/L (136-145); Triglycerides 116 mg/dL; Very Low Density Lipoprotein 23 mg/dL (5-40)
== END | disposition home or self-care (01) ==
PROVIDERS: PCP Family Medicine; Referring Provider Family Medicine; Visit Provider Family Medicine
DX: I10 Essential (primary) hypertension (principal); E11.9 Type 2 diabetes mellitus without complications; E78.5 Hyperlipidemia, unspecified; Z51.81 Encounter for therapeutic drug level monitoring
CPT/HCPCS: 36415; 80053; 80061; 83036; 84443; 85025

== ENCOUNTER → 2024-03-05 | Outpatient (CLI) | payer MEDICARE, SELFPAY ==
--- NOTE | 2024-03-05 12:40 | ECHOD_ITS ---
Reason For Study: Mitral Valve Insufficiency Procedure This was a 2D Doppler, Color Flow transthoracic echocardiogram. Exam performed in department. Left Ventricle Normal size and thickness. The left ventricular ejection fraction is 65 %. Unable to assess diastolic dysfunction due to arrhythmia. Right Ventricle Normal right ventricle. Atria There is moderate biatrial dilatation. Mitral Valve Mild diffuse mitral valve thickening. Moderate (2+) mitral valve insufficiency. Tricuspid Valve Mild to moderate (1-2+) tricuspid valve insufficiency. Normal pulmonary artery pressure. Aortic Valve Trisinus/trileaflet aortic valve. Pulmonic Valve Normal pulmonic valve. Great Vessels Normal sized aortic root. Pericardium/Pleural Trivial pericardial effusion. MMode/2D Measurements & Calculations LVIDd: 3.9 cm IVSd: 0.94 cm LVOT diam: 1.9 cm LVIDs: 2.1 cm LVPWd: 0.71 cm LVOT area: 2.9 cm2 RVDd: 3.1 cm FS: 46.5 % Ao root diam: 3.2 cm LAV(MOD-bp): 52.1 ml LVAd ap4: 18.6 cm2 LAV(MOD-bp) Indexed: 28.7 ml/m2 LVLd ap4: 5.7 cm LAV(MOD-sp2): 42.6 ml EDV(MOD-sp4): 51.5 ml LAV(MOD-sp4): 54.0 ml EDV(sp4-el): 51.8 ml LVAs ap4: 10.2 cm2 LVLs ap4: 4.7 cm ESV(MOD-sp4): 18.2 ml ESV(sp4-el): 18.7 ml EF(MOD-sp4): 64.7 % EF(sp4-el): 63.9 % SV(MOD-sp4): 33.3 ml SV(sp4-el): 33.1 ml Ao sinus diam: 2.[address] Junction: 2.6 cm LA dimension(2D): 3.9 cm LA A4 area: 20.3 cm2 RA A4 area: 15.9 cm2 TAPSE: 1.5 cm Doppler Measurements & Calculations MV E max maya: 99.0 cm/sec MV V2 max: 112.3 cm/sec Ao V2 max: 139.8 cm/sec MV max P.1 mmHg Ao max P.9 mmHg MV V2 mean: 52.9 cm/sec Ao V2 mean: 96.2 cm/sec MV mean P.5 mmHg Ao mean P.3 mmHg MV V2 VTI: 26.1 cm Ao V2 VTI: 26.9 cm AV (velocity ratio): 0.60 MVA(VTI): 1.8 cm2 AYAN(I,D): 1.7 cm2 AYAN(V,D): 1.9 cm2 LV V1 max: 91.1 cm/sec MR max maya: 477.7 cm/sec SV(LVOT): 46.2 ml LV V1 max P.3 mmHg MR max P.3 mmHg LV V1 mean P.8 mmHg MR mean maya: 363.8 cm/sec LV V1 mean: 62.6 cm/sec MR mean P.1 mmHg LV V1 VTI: 16.2 cm MR VTI: 149.9 cm PA V2 max: 68.1 cm/sec TR max maya: 236.9 cm/sec PA max PG (full): 0.28 mmHg TR max P.4 mmHg ECHO/Echo Complete Interpretation Summary The left ventricular ejection fraction is 65 %. Moderate (2+) mitral valve insufficiency. Mild to moderate (1-2+) tricuspid valve insufficiency. Trivial pericardial effusion. Ordering Physician: Sarath Reyes Referring Physician: Sarath Reyes Performed By: Dorian Zapata RCS
== END | disposition home or self-care (01) ==
LOC: CVS 12:39
PROVIDERS: PCP Family Medicine; Referring Provider Nurse Practitioner Family; Visit Provider Nurse Practitioner Family
DX: I34.0 Nonrheumatic mitral (valve) insufficiency (principal); I48.11 Longstanding persistent atrial fibrillation; E66.9 Obesity, unspecified
CPT/HCPCS: 93306

== ENCOUNTER → 2024-03-19 | Outpatient (CLI) | payer MEDICARE, SELFPAY ==
[2024-03-19 15:43] LABS: ALB/GLOB Ratio 0.7 RATIO (0.9-2.4); AST(SGOT) 20 U/L (15-37); Alanine Aminotransfer ALT/SGPT 25 U/L (13-56); Alkaline Phosphatase 58 U/L (45-117); Anion Gap 3 (5-15); BUN 35 mg/dL (7-18); BUN/Creat Ratio 17.6 RATIO (10-20); Calcium,Total 9.4 mg/dL (8.5-10.1); Chloride 109 mmol/L (98-107); Creatinine, Serum 1.99 mg/dL (0.55-1.02); EST Glomerular Filtration Rate 25 mL/min (>60); Est Glom Filt Rate - Afr Amer 31 mL/min (>60); Globulin 4.2 g/dL (2.2-4.2); Glucose 103 mg/dL (74-106); Potassium 4.1 mmol/L (3.5-5.1); Protein, Total 7.2 g/dL (6.4-8.2); Sodium Level 139 mmol/L (136-145)
== END | disposition home or self-care (01) ==
LOC: BFHLAB 13:08
PROVIDERS: PCP Family Medicine; Referring Provider Family Medicine; Visit Provider Family Medicine
DX: N28.9 Disorder of kidney and ureter, unspecified (principal)
CPT/HCPCS: 36415; 80053

== ENCOUNTER → 2024-06-03 | Outpatient (CLI) | payer MEDICARE, SELFPAY ==
[2024-06-03 15:08] LABS: Absolute Lymphocyte Count 1.42 X10^3/uL (0.83-4.51); Absolute Neutrophil Count 4.8 X10^3/uL (2.0-7.7); Basophil# 0.05 X10^3/uL; Basophil% 0.7 % (0-1); Eosinophil# 0.26 X10^3/uL; Eosinophils% 3.6 % (0-5); Hematocrit 33.6 % (37-47); Hemoglobin 10.6 g/dL (12.0-15.0); Lymphocyte # 1.42 X10^3/ul (0.83-4.51); Lymphocyte % 19.7 % (19-41); Mean Corp Hgb Conc 31.5 g/dL (32-36); Mean Corpuscular Hgb 30.6 pg (27.0-32.0); Mean Corpuscular Volume 97.1 fL (81-99); Mean Platelet Vol. 11.4 fl (6.2-12.0); Monocyte# 0.65 X10^3/uL; NRBC Flagged by Analyzer 0 % (0-5); Neutrophil # 4.83 X10^3/uL (2.7-7.7); Neutrophil % 66.9 % (47-70); Platelet Count 211 K/mm3 (150-450); RBC Distribution Width CV 13.8 % (11.6-14.6); RBC Distribution Width SD 49.3 fl (35.1-43.9); Red Blood Count 3.46 M/mm3 (4.2-5.4); White Blood Count 7.2 K/mm3 (4.4-11.0)
[2024-06-03 15:54] LABS: ALB/GLOB Ratio 0.7 RATIO (0.9-2.4); AST(SGOT) 18 U/L (15-37); Alanine Aminotransfer ALT/SGPT 21 U/L (13-56); Albumin, Serum 3.3 g/dL (3.2-5.0); Alkaline Phosphatase 66 U/L (45-117); Anion Gap 6 (5-15); BUN 28 mg/dL (7-18); BUN/Creat Ratio 18.9 RATIO (10-20); Calcium,Total 9.4 mg/dL (8.5-10.1); Chloride 105 mmol/L (98-107); Creatinine, Serum 1.48 mg/dL (0.55-1.02); EST Glomerular Filtration Rate 36 mL/min (>60); Est Glom Filt Rate - Afr Amer 43 mL/min (>60); Globulin 4.5 g/dL (2.2-4.2); Glucose 115 mg/dL (74-106); Potassium 3.9 mmol/L (3.5-5.1); Protein, Total 7.8 g/dL (6.4-8.2); Sodium Level 136 mmol/L (136-145)
== END | disposition home or self-care (01) ==
LOC: BFHLAB 11:40
PROVIDERS: PCP Family Medicine; Referring Provider Family Medicine; Visit Provider Family Medicine
DX: Z51.81 Encounter for therapeutic drug level monitoring (principal); N18.32 Chronic kidney disease, stage 3b; R30.0 Dysuria
CPT/HCPCS: 36415; 80053; 85025; 87077; 87086; 87088; 87186

== ENCOUNTER 2024-06-07 20:57 | Emergency (ER) | payer MEDICARE, SELFPAY ==
[2024-06-07 20:58] VITALS: BP 137/74; PULSE 96; RESP 15; TEMP 36; O2SAT 97
[2024-06-07 21:00] VITALS: BMI 36.8
--- NOTE | 2024-06-07 22:14 | EDS_ITS ---
HPI History of Present Illness Chief Complaint: Other, Pain/Inj Informant: patient and family Narrative Narrative: Here with daughter evaluation nontraumatic right-sided neck pain since yesterday evening. No pain or weakness down the arms. Pain worse with movement of the neck. States been dealing with upper respiratory symptoms recently currently resolving. She is on cephalexin for her UTI findings by PCP. She was asymptomatic. History of CKD. No history of similar. Sleep at 9 AM. Apnea with CPAP at night. Took Tylenol no allergies. Prior similar symptoms: No PFSH PFSH Medical History Irregular heart beat GERD (gastroesophageal reflux disease) CPAP (continuous positive airway pressure) dependence Sleep apnea Seasonal allergies JOSE C (obstructive sleep apnea) Strain of left knee Hiatal hernia with gastroesophageal reflux Hypersomnia Dyspnea Sinusitis URI (upper respiratory infection) History of gallstones Incontinence Diabetes Cancer Arthritis Hypertension Home Medications ?Medication ?Instructions ?Recorded ?Last Taken ?Type hydrochlorothiazide 25 mg tablet 25 mg PO DAILY 01/20/16 Unknown History omeprazole 40 mg capsule,delayed 40 mg PO BID 09/21/18 Unknown History release citalopram 10 mg tablet 10 mg PO DAILY 12/07/19 Unknown History meloxicam 15 mg tablet 15 mg PO DAILY 05/16/22 Unknown History semaglutide 0.25 mg or 0.5 mg (2 2 mg subcut QWEEK 08/14/23 Unknown History mg/3 mL) subcutaneous pen injector (Ozempic) trospium 20 mg tablet 20 mg PO QHS 08/14/23 Unknown History ergocalciferol (vitamin D2) 1,250 1,250 mcg PO QWEEK 10/02/23 Unknown History mcg (50,000 unit) capsule (Drisdol) nystatin 100,000 unit/gram topical 1 applic topical DAILY PRN 10/02/23 Unknown History powder metoprolol succinate 50 mg 50 mg PO DAILY #90 tabs 11/06/23 Unknown Rx tablet,extended release 24 hr apixaban 5 mg tablet (Eliquis) 5 mg PO BID #180 tabs 01/25/24 Unknown Rx calcitriol 3 mcg/gram topical 1 applic topical BID PRN 02/12/24 Unknown History ointment calcium 500 mg 500 tab PO DAILY 02/12/24 Unknown History (carb,gluconate)-magnesium 250 mg (gluc,oxide) tablet (Calcium Magnesium) ketoconazole 2 % shampoo 1 applic topical Q2W PRN 02/12/24 Unknown History mv-min-vit C 1,000 mg-elderberry 1 ea PO DAILY PRN 02/12/24 Unknown History 50 mg-herb 35.5mg effervescent tablet (Airborne Elderberry) diazepam 5 mg tablet (Valium) 2.5 mg (1/2 x 5 mg) PO TID PRN 06/07/24 Unknown Rx muscle spasm #10 tabs Allergy/AdvReac Type Severity Reaction Status Date / Time No Known Allergies Allergy Verified 06/07/24 20:58 Family History Sister Cancer Brother Parkinson's disease Daughter Cancer Skin cancer Grandfather Arthritis CVA (cerebral vascular accident) Myocardial infarction Grandmother Arthritis CVA (cerebral vascular accident) Myocardial infarction Other Diabetes Hypertension Surgical History History of bladder repair surgery S/P laparoscopic cholecystectomy History of back surgery History of right hip replacement Social History household members: spouse Smoking Status: Never smoker alcohol intake: never what type of physical activity do you participate in: aerobics ROS ROS ED Constitutional Constitutional ED: Denies chills, fever(s) or sweats ENT ENT ED: Denies sore throat Cardiovascular Cardiovascular: Denies chest pain, leg edema, palpitations or racing heartbeat Respiratory/Chest Respiratory/Chest: Denies dyspnea or dyspnea on exertion Gastrointestinal Gastrointestinal: Denies abdominal pain, diarrhea, nausea or vomiting Genitourinary Genitourinary ED: Denies dysuria, hematuria or urinary frequency Musculoskeletal Musculoskeletal: Reports neck pain; Denies back pain or extremity pain Integumentary Denies rash or wounds Neurologic Neurologic: Denies headache(s), paresthesias or weakness EXAM Physical Exam Const Vital Signs: 06/07/24 20:58 06/07/24 23:40 Temperature 96.8 F L 98.0 F Temperature Source Temporal Pulse Rate 96 85 Respiratory Rate 15 18 Blood Pressure 137/74 H 133/76 H Blood Pressure Mean 95 95 Pulse Ox 97 97 Oxygen Delivery Method Room Air Positive well nourished and well developed General Appearance ED: well developed and NAD HEENT Reports moist mucous membranes normocephalic and atraumatic Eyes General Eye ED: Yes normal appearance of both eyes Neck Neck Narrative: There is torticollis right side neck tenderness right side. No midline tenderness. Chest Wall Chest: Negative for tenderness Resp normal respiratory effort and normal air movement Effort and Inspection: symmetric chest movement; Negative for respiratory distress Cardio regular rate, regular rhythm and no murmurs Peripheral Pulses: pulses 2+ throughout GI normal to inspection, nondistended, normoactive bowel sounds and non-tender Palpation: Negative for guarding or rebound tenderness present Extremity normal to inspection General Extremety ED: Negative for edema or tenderness General Extremity: Negative for edema Neuro oriented x3 and no sensory deficits noted Sensorium / Orientation: awake and alert Skin no rashes or lesions noted and no wounds MDM MDM MDM Narrative Medical decision making narrative: Interventions / MDM: Differential diagnosis: Acute torticollis Diagnosis considered but do not suspect: No presentation of meningitis concerns My EKG interpretation: N/A Imaging independently reviewed and interpreted by myself: N/A External documents reviewed: N/A Test considered but not ordered:N/A ED course: Patient right-sided torticollis, initially on evaluation perform some facilitated positional release with increasing movement. Will treat with Tylenol and low-dose Valium and will reevaluate. Reevaluation had improving tightness. I performed additional facilitated positional release. She will be continued on Tylenol [id number]. I prescribed meds to bed with Valium to use as needed. I discussed good support of her neck when she sleeps. Outpatient follow-up with her doctor. All questions were answered. Re-evaluation: stable Disposition discussed with patient/family/significant other: Patient and daughter Case discussed with consulting clinician: N/A This note was generated with [employer] dictation software. It may contain incorrect words, spelling, and punctuation that were not noted in checking the note before signing. Discharge Plan Triage Chief Complaint: Other, Pain/Inj ED Provider: Jayesh Darby Dx/Rx/DC Orders Clinical Impression: Torticollis, Neck pain Instructions: Torticollis (Wry Neck) Prescriptions: New diazepam [Valium] 5 mg tablet 2.5 mg PO TID PRN (Reason: muscle spasm) Qty: 10 0RF No Action ketoconazole 2 % shampoo 1 applic TOPICAL Q2W PRN Airborne Elderberry 1,000 mg-50 mg-35.5 mg tablet, effervescent 1 ea PO DAILY PRN calcitriol 3 mcg/gram ointment 1 applic topical BID PRN Calcium Magnesium 500 mg calcium- 250 mg tablet 500 tab PO DAILY trospium 20 mg tablet 20 mg PO QHS Patient Comments: TAKE 1 TABLET BY MOUTH EVERY DAY AT BEDTIME ON AN EMPTY STOMACH Ozempic 0.25 mg or 0.5 mg (2 mg/3 mL) pen injector 2 mg subcut QWEEK Patient Comments: INJECT 0.5 MG SUBCUTANEOUSLY WEEKLY FOR 30 DAYS ergocalciferol (vitamin D2) [Drisdol] 1,250 mcg (50,000 unit) capsule 1,250 mcg PO QWEEK nystatin 100,000 unit/gram powder 1 applic topical DAILY PRN hydrochlorothiazide 25 MG tablet 25 mg PO DAILY omeprazole 40 MG capsule,delayed release(DR/EC) 40 mg PO BID citalopram 10 mg tablet 10 mg PO DAILY Patient Comments: TAKE 1 TABLET BY MOUTH EVERY DAY meloxicam 15 mg tablet 15 mg PO DAILY metoprolol succinate 50 mg tablet extended release 24 hr 50 mg PO DAILY Qty: 90 3RF Eliquis 5 mg tablet 5 mg PO BID Qty: 180 3RF Primary Care Provider: Elaina Butts Referrals: Elaina Butts DO [Primary Care Provider] - 1 Week if not improving Activity Restrictions/Additional Instructions: Continue Tylenol 1 g every 6 hours. Use Valium as needed. Follow-up with your doctor. Print Language: Mauritanian Disposition Disposition: Home, Self Care Discharge Date/Time: 06/07/24 23:59
[2024-06-07] MEDS: Acetaminophen 500 MG Tablet 1000 MG PO (22:18)
[2024-06-07] MEDS: diazePAM 2 MG Tablet PO (22:19)
[2024-06-07 23:40] VITALS: BP 133/76; PULSE 85; RESP 18; TEMP 36.7; O2SAT 97
== END 2024-06-07 23:59 | disposition home or self-care (01) ==
PROVIDERS: Emergency Provider Emergency Medicine; PCP Family Medicine; Visit Provider Emergency Medicine
DX: M43.6 Torticollis (principal); E11.22 Type 2 diabetes mellitus with diabetic chronic kidney disease; N18.9 Chronic kidney disease, unspecified; I12.9 Hypertensive chronic kidney disease with stage 1 through stage 4 chronic kidney disease, or unspecified chronic kidney disease; Z79.85 Long-term (current) use of injectable non-insulin antidiabetic drugs; Z79.899 Other long term (current) drug therapy
CPT/HCPCS: 99283

== ENCOUNTER → 2024-06-14 | Outpatient (CLI) | payer MEDICARE, SELFPAY ==
--- NOTE | 2024-06-14 10:37 | BI_ITS ---
MAMMOGRAPHY - BILATERAL SCREENING 3-D TOMOSYNTHESIS REASON FOR EXAM: Female, 83 years old. SCREENING PERTINENT HISTORY: No significant family history. TECHNIQUE: 2-D mammograms and 3-D Tomosynthesis of the breast (s) were performed. CAD was performed. COMPARISON: 05/16/2023 FINDINGS: The breast composition is composed of scattered fibroglandular density. Scattered benign calcifications are seen. No dense spiculated masses or suspicious microcalcifications are identified. No architectural distortion is identified. There is no skin thickening or retraction. There has been no significant change since the prior study. No change in bilateral benign rodlike calcifications. BI/SCRN MAMM (CAD)W/VIVEK BILAT IMPRESSION: No mammographic signs of malignancy. Routine yearly mammograms recommended. ASSESSMENT CATEGORY: BIRADS Category 2: Benign. A letter regarding these results will be sent to the patient by the facility within 30 days. FOLLOW UP RECOMMENDATION: Yearly follow up mammogram recommended. (A) Approximately 10% of breast cancers are not detected by mammography. A normal mammogram should not delay biopsy of a clinically suspicious abnormality. Electronically Signed: Cj Davis MD at 19:49 EST ,
== END | disposition home or self-care (01) ==
LOC: OPBI 10:35
PROVIDERS: PCP Family Medicine; Referring Provider Family Medicine; Visit Provider Family Medicine
DX: Z12.31 Encounter for screening mammogram for malignant neoplasm of breast (principal)
CPT/HCPCS: 77063; 77067

== ENCOUNTER → 2024-07-18 | Outpatient (CLI) | payer MEDICARE, SELFPAY ==
[2024-07-18 18:37] LABS: ALB/GLOB Ratio 0.8 RATIO (0.9-2.4); AST(SGOT) 16 U/L (15-37); Alanine Aminotransfer ALT/SGPT 15 U/L (13-56); Albumin, Serum 3.5 g/dL (3.2-5.0); Alkaline Phosphatase 69 U/L (45-117); Anion Gap 7 (5-15); BUN 46 mg/dL (7-18); BUN/Creat Ratio 23.8 RATIO (10-20); Calcium,Total 9.4 mg/dL (8.5-10.1); Chloride 108 mmol/L (98-107); Creatinine, Serum 1.93 mg/dL (0.55-1.02); EST Glomerular Filtration Rate 26 mL/min (>60); Est Glom Filt Rate - Afr Amer 32 mL/min (>60); Globulin 4.6 g/dL (2.2-4.2); Glucose 94 mg/dL (74-106); Iron 67 ug/dL (50-170); Potassium 3.7 mmol/L (3.5-5.1); Protein, Total 8.1 g/dL (6.4-8.2); Sodium Level 139 mmol/L (136-145)
[2024-07-18 18:39] LABS: Absolute Lymphocyte Count 1.63 X10^3/uL (0.83-4.51); Absolute Neutrophil Count 5.3 X10^3/uL (2.0-7.7); Basophil# 0.07 X10^3/uL; Basophil% 0.9 % (0-1); Eosinophil# 0.22 X10^3/uL; Eosinophils% 2.8 % (0-5); Hematocrit 34.6 % (37-47); Hemoglobin 11.3 g/dL (12.0-15.0); Lymphocyte # 1.63 X10^3/ul (0.83-4.51); Lymphocyte % 20.6 % (19-41); Mean Corp Hgb Conc 32.7 g/dL (32-36); Mean Corpuscular Hgb 30.8 pg (27.0-32.0); Mean Corpuscular Volume 94.3 fL (81-99); Mean Platelet Vol. 11.1 fl (6.2-12.0); Monocyte% 8.9 % (0-10); NRBC Flagged by Analyzer 0 % (0-5); Neutrophil # 5.26 X10^3/uL (2.7-7.7); Neutrophil % 66.5 % (47-70); Platelet Count 232 K/mm3 (150-450); RBC Distribution Width CV 13.7 % (11.6-14.6); Red Blood Count 3.67 M/mm3 (4.2-5.4); White Blood Count 7.9 K/mm3 (4.4-11.0)
[2024-07-18 18:40] LABS: Vitamin B12 465 pg/mL (211-911)
== END | disposition home or self-care (01) ==
LOC: BFHLAB 16:39
PROVIDERS: PCP Family Medicine; Visit Provider Family Medicine
DX: D64.9 Anemia, unspecified (principal); E53.8 Deficiency of other specified B group vitamins; E61.1 Iron deficiency; N39.0 Urinary tract infection, site not specified
CPT/HCPCS: 36415; 80053; 82607; 83540; 85025

== ENCOUNTER 2024-08-12 10:30 | Outpatient (RCR) | payer MEDICARE, SELFPAY ==
--- NOTE | 2024-07-05 09:57 | HP.PTEVAL ---
Patient's Visit Information Visit Information Visit Information: JUDITH HUNT is a 83 year old F referred to Physical Therapy by Dr. Walter Borges DO with a diagnosis of L hip DDD, lumbago. Date of Evaluation: 07/05/24 Physical Therapist: Shola Lund DPT Visit Plan Frequency: 2x /Week Duration: 6 Weeks Plan: In aquatic settin) Hip and core strengthening, specifically L hip abductors and extensors 2) lumbar ROM as tolerated 3) progress to I in pool. Pt. has silver sneakers and would like to get to the point where she is I with program and able to complete water aerobic classes. Add in HEP for daily non pool exercises. (ie sink exercises, squatting) Subjective Subjective: Pt. is here today for her initial evaluation with diagnosis of DDD of L hip and lumbago. Pt. reports having increased L hip and low back pain for ~ 6 months. Pt. reports no N/T, no mech of injury. Pt is fearful that her leg will give out on her. Pt. reports having groin pain, previously had bursitis and this does not feel like that. Pt. reports that her children do the cleaning around the house, but she does daily acitivites. She does still drive. She has done some aquatic exercises in the past has been helpful for her back and hips. Pt. is hopeful to increase her strength and get back to all activities with decreased L hip pain. Pain L hip: Pain Intensity (Out of 10): 5 Pain Intensity Range: 2 and 7 Objective Objective: POSTURE: Pt. flexed posture in stance. Wide BREANNA noted. PALPATION: Pt. has no tenderness along IT band or greater trochanter on L side. Slight pain with palpation of B lumbar paraspinals. NEURO: Pt. has normal sensation in BLEs. Pt. has normal DTR of B patellar and achilles reflexes. Pt. is able to rise on heels and toes without limitations. ROM: Lumbar spine: flexion nil/min loss mild LBP, ext mod loss increase NW at lumbar spine, SB R min loss increase NW at lumbar spine, SB L nil loss NE, rotation min loss bilat mild increase NW at lumbar spine. L hip: flexion 100deg increase NW at groin, ER 65deg NE, IR 10deg increase NW at groin. Pt. has good HS length bilaterally. MMT: LLE: knee: ext 30.6#, flexion 26.1#; hip: flexion 23.6#, abd 6.9# RLE: knee: ext 35.5#, flexion 26.9#; hip: flexion 22.9#, abd 18.9# Core strength: poor. GAIT: Pt. ambulates with SPC with good pattern. She has a general flexed posture with gait and antalgic pattern during L stance. Increased L hip pain during stance phase of gait. Special Tests L Hip Scour: Positive L Hip LAUREL - Intraarticular Pathology: Negative L Hip FADDIR - Labrum: Positive L Hip Taryn - IT Band: Negative Balance/Special Test Scores Lower Extremity Functional Score: 26 TUG Test Time Seconds: 19.5 30 Second Chair Rise Test Seconds: 7 Goals Goal 1:: LTG: Pt. to be I with HEP for both home and aquatic setting. Goal Time Frame: 4-6 Weeks Goal 2:: LTG: Pt. to have increased L hip strength to the strength of her R hip in order to reduce stress to L hip pain with all ADLs and functional mobility. Goal Time Frame: 4-6 Weeks Goal 3:: LTG: Pt. to complete 30 sec sit to stand rep test with at least 12 reps indicating proper functional strength. Goal Time Frame: 4-6 Weeks Goal 4:: LTG: Pt. to be able to walk around house without AD with 0-2/10 pain in L hip and without feeling of wanting to give out. Goal Time Frame: 4-6 Weeks Goal 5:: LTG: pt. to have improved TUG time to less than 10sec without Ad. Goal Time Frame: 4-6 Weeks Rehabilitation Potential Physical Therapy Diagnosis: Pt. has signs and symptoms consistent with L hip OA and lumbago. Pt. would benefit from PT in aquatic setting to increase her L hip/core strength, functional mobility in order to get back to all household activities and walking with improved tolerance. Rehabilitation Potential: Good Anticipated Interventions Patient/Client Instruction: Educate patient on: Condition, Plan of Care, Risk Factors and Benefits of Fitness Program For the Purpose of:: To improve decision making, To facilitate caregiver knowledge, To improve self management, To prevent re-injury, To improve ability to perform tasks related to life management and To improve tolerance to ADL's Therapeutic Exercise to Include: Strength training, Power training, Endurance training, Balance training, Postural training, Flexibilty training, Gait and locomotor training, In an aquatic setting, Passive ROM and Active ROM For the Purpose of:: To decrease pain, To increase ROM, To improve nutrient delivery to tissue, To increase oxygenation perfusion, To improve muscle performance and motor function, To improve ability to perform ADL's, To improve gait and locomotor functions, To improve health of tissue, To decrease soft tissue restriction and To increase flexibility/ROM Text: Thank you for the opportunity to evaluate your patient. For Medicare and Medicare HMO plans, please review the plan of care and approve it. It will need to be FAXED BACK to us at [phone] for Medicare purposes. For Medicare only, by signing this I certify the plan of care. Please let me know if there are questions or concerns regarding this plan of care. Physician Signature: Date:
== END 2024-08-12 19:00 | disposition home or self-care (01) ==
LOC: PT 10:30
PROVIDERS: PCP Family Medicine; Referring Provider Orthopaedic Surgery; Visit Provider Orthopaedic Surgery
DX: M16.12 Unilateral primary osteoarthritis, left hip (principal); M54.50 Low back pain, unspecified
CPT/HCPCS: 97113; 97161

== ENCOUNTER 2024-09-02 12:07 | Outpatient (CLI) | payer MEDICARE, SELFPAY | END 2024-09-02 23:59 | disposition home or self-care (01) | LOC: LABSPEC 12:08 | PROVIDERS: PCP Family Medicine; Visit Provider Family Medicine | DX: R30.0 Dysuria (principal) | CPT/HCPCS: 87086; 87088; 87186 ==

== ENCOUNTER 2024-09-09 11:00 | Outpatient (CLI) | payer MEDICARE, SELFPAY ==
[2024-09-09 21:21] LABS: Anion Gap 13 (5-15); BUN 35 mg/dL (4-19); BUN/Creat Ratio 20.2 RATIO (10-20); Calcium,Total 9.8 mg/dL (7.6-11.0); Carbon Dioxide 22.8 mmol/L (21.0-32.0); Chloride 102 mmol/L (98-108); Creatinine, Serum 1.74 mg/dL (0.70-1.20); EST Glomerular Filtration Rate 29 (>60); Glucose 103 mg/dL (70-99); Potassium 3.9 mmol/L (3.3-5.1); Sodium Level 138 mmol/L (133-145)
== END 2024-09-09 23:59 | disposition home or self-care (01) ==
LOC: MTLAB 11:02
PROVIDERS: PCP Family Medicine; Referring Provider Internal Medicine Cardiovascular Disease; Visit Provider Internal Medicine Cardiovascular Disease
DX: R94.31 Abnormal electrocardiogram [ECG] [EKG] (principal); R06.09 Other forms of dyspnea; I10 Essential (primary) hypertension
CPT/HCPCS: 36415; 80048

== ENCOUNTER → 2024-10-02 | Outpatient (CLI) | payer MEDICARE, SELFPAY | END | disposition home or self-care (01) | LOC: LABSPEC 11:59 | PROVIDERS: PCP Family Medicine; Visit Provider Family Medicine | DX: N39.0 Urinary tract infection, site not specified (principal) | CPT/HCPCS: 87086; 87088 ==

== ENCOUNTER → 2024-10-29 | Outpatient (CLI) | payer MEDICARE, SELFPAY | END | disposition home or self-care (01) | LOC: LABSPEC 12:34 | PROVIDERS: PCP Family Medicine; Referring Provider Family Medicine; Visit Provider Family Medicine | DX: R30.0 Dysuria (principal) | CPT/HCPCS: 87077; 87086; 87088; 87186 ==

== ENCOUNTER → 2025-01-08 | Outpatient (CLI) | payer MEDICARE, SELFPAY ==
[2025-01-08 21:43] LABS: Creatinine, Urine (random) 150.00 mg/dL (28.00-217.00); Microalbumin,Random Urine 19.0 mg/L (<20 mg/L)
== END | disposition home or self-care (01) ==
LOC: LABSPEC 11:56
PROVIDERS: PCP Family Medicine; Referring Provider Family Medicine; Visit Provider Family Medicine
DX: R30.0 Dysuria (principal); E11.9 Type 2 diabetes mellitus without complications
CPT/HCPCS: 82043; 82570; 87077; 87086; 87088; 87186

== ENCOUNTER → 2025-03-21 | Outpatient (CLI) | payer MEDICARE, SELFPAY ==
--- NOTE | 2025-03-21 13:23 | MRI_ITS ---
PROCEDURE: SPINE LUMBAR W/WO CONTRAST 03/21/2025 REASON FOR EXAM: PAIN X3 MONTHS LEFT LUMBAR, HX OF SURGERY TECHNIQUE: Procedure Code: [id number] Modality: MR Procedure: SPINE LUMBAR W/WO CONTRAST Multiplanar and multisequence images were obtained without and with intravenous gadolinium-based contrast administration. CONTRAST: Clariscan VOLUME: 16 mL COMPARISON: Lumbar spine x-ray 02/20/2025. FINDINGS: Vertebrae: Preserved in height and signal. Alignment: Anterolisthesis L3 on L4 by 3 facet joints arthropathy. Moderate bilateral foramina stenosis with mass-effect mm. Conus Medullaris: Unremarkable. L1-2: Disc desiccation. Left foraminal disc herniation measures 3 mm. Facet joint arthropathy. Mild inferior bilateral foramina stenosis. Mild canal stenosis. L2-3: Disc bulge. Facet joint arthropathy. Ligamentum flavum hypertrophy. Mild bilateral foramina stenosis. Moderate canal stenosis. L3-4: Disc bulge. Facet joint arthropathy. Moderate bilateral foramina stenosis with abutment upon the exiting nerves. Severe canal stenosis causing compression upon the cauda equina nerves. L4-5: Disc bulge. Facet joint arthropathy. Facet joint effusion. Ligamentum flavum hypertrophy. Mild bilateral foramina stenosis. No canal stenosis. L5-S1: Disc desiccation. Disc bulge. Facet joint arthropathy. No foraminal or canal stenosis. Sacrum: Unremarkable. Postcontrast images: No abnormal enhancement. MRI/Spine Lumbar W/WO Contrast IMPRESSION: Degenerate changes of the lumbar spine predominantly at L3-L4 where there is se brook canal stenosis and compression upon the cauda equina nerves. No evidence of abnormal enhancement or acute process. Reading Location: [facility]
== END | disposition home or self-care (01) ==
LOC: MRI 13:14
PROVIDERS: PCP Family Medicine; Referring Provider Student in an Organized Health Care Education/Training Program; Visit Provider Student in an Organized Health Care Education/Training Program
DX: M51.360 Other intervertebral disc degeneration, lumbar region with discogenic back pain only (principal); M43.16 Spondylolisthesis, lumbar region
CPT/HCPCS: 72158; A9575

== ENCOUNTER 2025-04-29 12:00 | Outpatient (RCR) | payer MEDICARE, SELFPAY ==
--- NOTE | 2025-04-01 13:20 | HP.PTEVAL ---
Patient's Visit Information Visit Information Visit Information: JUDITH HUNT is a 84 year old F referred to Physical Therapy by Dr. Fidencio Miller MD with a diagnosis of DDD. Date of Evaluation: 04/01/25 Physical Therapist: Aries De Santiago, DPT, OCS, CSCS Visit Plan Frequency: 2x /Week Duration: 4-6 Weeks Plan: 2x/week for 4-6 weeks: IE liee supine flat 3 min 3x/day, pelvic tilt seated adn supine 10x thourghout day. think about posture.Get back to pool 2x/week, use rollator 100% of time. Treat with: 1. mat based NS core streength to HEP, plvic and lumbar ROM 2. stretech and to HEP quad psoas 3. Gait training for balance with LRD, getting her up tall MH as neeeded Consider pool therapy if patient confideence wanes or not going well I Subjective Subjective: Chronic back problems since with discs and had discectomy. Was allright for long time but now OA and stenosis. Bone deensity problems and theey all ffect back. RAVINDER in 2012 R. Wants to walk without canee or rollator which has not happened in thee last year. Worse over the last year and is doing all the inside adn outside work now. Lovees garden but back doesn't hold up. Use cane to get around. Rollator at home adn outside. Pain is L LB and worse adn tight with walking in back. Relieved with sitting. Lives alonee, drive OK. basic ADL all I and safe. Nurse comes weekly to check on her health. Takes care of house I but vaccuuming hurts. has afib also. Takes frequent breaks. Hobbies: genealogy, corchet, knitting Exeercise: water aerpbics sporadic 2x/week. Pain L LBP: Pain Intensity (Out of 10): 1 Pain Intensity Range: 0 and 7 Objective Objective: Wals[place] with cane in R UE slow adn hesitant wt shift back to PT with R trendelenberg. Unsafe without cane and poor confidence, does beetter with rollator and has on at homee. Transfers beed and chair slow but I. Decent standing balance without holding on but poor dynamic balance unsafe without aD. LB AROM: cannot stand up tall or lie flat in xt without discomfort so she does not, flexion and SB are funcitonal and WFL, R hurts slightly on L. HS mod tight at -30 90/90 test, quad and psoas tight B pulling on back in supine. L hip FABERE + unstable seeated core with hip testing flexion 3, abd and xt 3, knee ext and flexion 3+, pain L knee. anklees 4-, no myotomal problems. rfleexes 1/3 patella and achills B. Sensation LE WNL to gross light touch. Hunches with ambulation and unablee to stand up tall for more than 2 steps. pelvic mobility is poor. Balance/Special Test Scores Functional Gait Assessment Score: 11 % Disability: 63.3400 Oswestry Low Back Score: 23 Goals Goal 1:: walk with cane up tall without pain x 200 feet Goal Time Frame: 4-6 Weeks Goal 2:: I approrpiate HEP for core strngth and geeneral strength adn balance Goal Time Frame: 4-6 Weeks Goal 3:: Oswestry score 17 or less Goal Time Frame: 4-6 Weeks Goal 4:: liee flat without back pain Goal Time Frame: 4-6 Weeks Rehabilitation Potential Physical Therapy Diagnosis: degenrative changes causing pain adn limitd motionweakness in core limiting walking ability without AD. Rehabilitation Potential: Fair Anticipated Interventions Patient/Client Instruction: Educate patient on: Condition and Plan of Care For the Purpose of:: To decrease pain, To increase ROM, To improve nutrient delivery to tissue and To improve gait and locomotor functions Therapeutic Exercise to Include: Strength training, Passive ROM, Active ROM and Dynamic Lumbar Stabilization For the Purpose of:: To decrease pain, To increase ROM, To improve nutrient delivery to tissue, To improve muscle performance and motor function, To increase tolerance to activity/condition/position and To improve ability of physical actions for home/community/work/leisure Manual Therapy Techniques to Include: Mobilization, Passive ROM and Soft tissue mobilization Thermo therapy (hot pack): Yes For the Purpose of:: To decrease pain and To improve nutrient delivery to tissue Text: Thank you for the opportunity to evaluate your patient. For Medicare and Medicare HMO plans, please review the plan of care and approve it. It will need to be FAXED BACK to us at [phone] for Medicare purposes. For Medicare only, by signing this I certify the plan of care. Please let me know if there are questions or concerns regarding this plan of care. Physician Signature: Date:
--- NOTE | 2025-04-29 12:24 | HP.PTDCSUM_ITS ---
Discharge Summary D/C summary: It has been my pleasure to treat JUDITH HUNT referred by Dr. Fidencio Miller MD, with the diagnosis of DDD for a total of 7 visit(s). Discharge Date: 04/29/25 Please see the following information for a summary of their discharge status. Subjective Subjective: A little bit better. Not as good as had hoped, Still needs cane or rollator to walk. Exercises for back are going well. 3/10 in LB today, some days better than otheers overall. Had company and did not do them this am. Feels tight. Will see Dr. Miller. Ready to try pain managment. Has not gotten in the water Pain L LBP: Pain Intensity (Out of 10): 3 Overall Improvement % Improvement: 60 Objective Objective/Function: Still hunched over ambulating with cane although 2 points better on FGA, still needs cane for safety. Unable to stand all the way up tall, slightly better lying flat with legs strai ght although has been noncompliant with that one. Overall, not much change and frustrated with pain and ready to try pain mgmt so she can eventually tolerate ex for strngth adn balance better. Goals Goal 1:: walk with cane up tall without pain x 200 feet Goal Progress: improvd but frustrated Goal 2:: I approrpiate HEP for core strngth and geeneral strength adn balance Goal Progress: Progressing Goal 3:: Oswestry score 17 or less Goal Progress: Not Progressing Goal 4:: liee flat without back pain Goal Progress: Not Progressing Plan Plan: d/c , Pt to contact Dr. Javier burgess regarding referral to pain mgmt which is apporpriate. Will continue home lumbar ROM, core strength and atteempt to get in her community pool which she is comfortable with. D/C Information Discharge Comments: Back to doctor for pain mgmt options. d/c sentence: If there are questions or concerns regarding this patient's physical therapy, please feel free to call me at [phone]. Thank you for the referral of this patient. Sincerely, Aries De Santiago, DPT, OCS, CSCS Balance/Gait/Functional tests Balance/Special Test Scores Functional Gait Assessment Score: 13 % Disability: 56.6700 Oswestry Low Back Score: 25 Improvement % Improvement: 60
== END 2025-04-29 19:00 | disposition home or self-care (01) ==
LOC: PT 12:00
PROVIDERS: PCP Family Medicine; Referring Provider Orthopaedic Surgery Orthopaedic Surgery of the Spine; Visit Provider Orthopaedic Surgery Orthopaedic Surgery of the Spine
DX: M51.360 Other intervertebral disc degeneration, lumbar region with discogenic back pain only (principal)
CPT/HCPCS: 97110; 97116; 97162; 97164